=== PATIENT | female | born 1950 | race Caucasian/White ===

== ENCOUNTER 2022-12-11 10:36 | Outpatient (CLI) | payer MEDICARE, SELFPAY ==
[2022-12-11 21:42] LABS: Albumin* 4.6 g/dL (3.3-5.0)
[2022-12-11 21:43] LABS: Chloride* 104 mmol/L (96-114); Potassium* 4.2 mmol/L (3.6-5.1); Sodium* 140 mmol/L (135-149)
[2022-12-11 21:45] LABS: Bilirubin Total* 0.8 mg/dL (0.1-1.5); Carbon Dioxide* 25 mmol/L (20-32); Cholesterol* 130 mg/dL (90-199); Creatinine* 0.8 mg/dL (0.5-1.5); Estimated Glomerular Filt Rate 78 ml/min
[2022-12-11 21:46] LABS: Alanine Aminotransferase* 19 U/L (4-35); Alkaline Phosphatase* 71 U/L (40-150); Aspartate Amino Transferase* 21 U/L (12-35); Blood Urea Nitrogen* 16 mg/dL (7-30); Calcium* 10.1 mg/dL (8.4-10.6); Glucose* 159 mg/dL (60-115); Total Protein* 7.5 g/dL (6.0-8.3); Triglycerides* 206 mg/dL (40-149)
[2022-12-11 21:47] LABS: HDL Cholesterol* 55 mg/dL (>=50); LDL Cholesterol Calculated 34 mg/dL (<100)
[2022-12-11 22:12] LABS: Creatinine Urine 44.7 mg/dL
[2022-12-11 22:16] LABS: Microalbumin Creatinine Ratio 200 mg/g (0-30); Microalbumin Urine 9 mg/dL
[2022-12-11 22:19] LABS: Thyroid Stimulating Hormone* 0.031 uIU/mL (0.270-4.20)
== END 2022-12-11 10:37 | disposition home or self-care (01) ==
PROVIDERS: PCP Nurse Practitioner Family; Visit Provider Nurse Practitioner Family
DX: E11.9 Type 2 diabetes mellitus without complications (principal); E78.5 Hyperlipidemia, unspecified
CPT/HCPCS: 80053; 80061; 82043; 82570; 84443

== ENCOUNTER 2023-01-08 08:43 | Outpatient (CLI) | payer MEDICARE, SELFPAY ==
[2023-01-08 22:06] LABS: Thyroid Stimulating Hormone* 0.085 uIU/mL (0.270-4.20)
[2023-01-10 19:47] LABS: Total T3 103 ng/dL (80-200)
== END 2023-01-08 08:44 | disposition home or self-care (01) ==
PROVIDERS: PCP Nurse Practitioner Family; Visit Provider Nurse Practitioner Family
DX: R79.89 Other specified abnormal findings of blood chemistry (principal)
CPT/HCPCS: 84439; 84443; 84480

== ENCOUNTER 2023-05-27 13:14 | Outpatient (CLI) | payer MEDICARE, SELFPAY | END 2023-05-27 13:15 | disposition home or self-care (01) | PROVIDERS: PCP Nurse Practitioner Family; Visit Provider Nurse Practitioner Family | DX: R79.89 Other specified abnormal findings of blood chemistry (principal) | CPT/HCPCS: 84443 ==

== ENCOUNTER 2023-11-28 12:53 | Outpatient (CLI) | payer MEDICARE, SELFPAY ==
--- OUTSIDE RECORDS SUMMARY | 2023-11-28 12:58 | XMS_ITS | Encounter Summary ---
Author Name Unknown Organization [facility] Address [address] [place] [address]. [place] [address] Care Team Providers Care Multicut Line Operator Name Role Phone Brittany Long DO Primary Care Provider [phone] Mildred Long MD Unavailable [phone] Brittany Long DO Unavailable [phone] Reason for Visit * Reason Comments Medication Refill Encounter Details Date Type Department Care Team (Late st Contact Info) Description 12/24/2022 Refill [facility] [id number] [place] [phone] [place] [address] [place], [place] [phone] Medication Refill Social History Tobacco Use Types Packs/Day Years Used Date Smoking Tobacco: Never Smokeless Tobacco: Never Alcohol Use Standard Drinks/Week Comments Yes 0 (1 standard drink = 0.6 oz pur e alcohol) Rare PHQ-2 Answer Date Recorded PHQ-2 Score 0 05/15/2022 Sex and Gender Information Value Date Recorded Sex Assigned at Female 03/05/2021 10:21 AM CDT Gender Identity Female 03/05/2021 10:21 AM CDT Sexual Orientation Not on file documented as of this encounter Miscellaneous Notes * Telephone Encounter - Tony Herring RN - 12/26/2022 3:24 PM CST Call placed to Patient Relayed Dr Bautista message States that she has already called her pharmacy Relayed to her that her pharmacy is still trying to contact dr Long for refills She will call them again Tony Herring, RN UD LINE TIER * Telephone Encounter - Brittany Long DO - 12/25/2022 12:40 PM CST Pt has transferred care. Please have her notify her pharmacy so refills can be sent to the correct provider. Dr. Brittany Long DO UD LINE TIER documented in this encounter Plan of Treatment Not on file documented as of this encounter Visit Diagnoses Diagnosis Hyperlipidemia LDL goal <100 Other and unspecified hyperlipidemia Hypertension goal BP (blood pressure) < 140/90 Unspecified essential hypertension Type 2 diabetes mellitus with stage 2 chronic kidney disease, without long-term current use of insulin (H) documented in this encounter Care Teams Multicut Line Operator Relationship Specialty [place] [address] [place] [address] PCP - General 02/26/07 Mildred Long MD [address] [place] [address] [address] [place] [address] INTERNAL MEDICINE - ENDOCRINOLOGY, DIABETES & METABOLISM 04/06/15 [place] [address] [address] [place] [address] Assigned PCP 05/12/21 documented as of this encounter
--- OUTSIDE RECORDS SUMMARY | 2023-11-28 12:58 | XMS_ITS | Encounter Summary ---
Author Name Unknown Organization [facility] Address [address] [place] [address]. [place] [address] Care Team Providers Care Chiseler Head Name Role Phone Brittany Long DO Primary Care Provider [phone] Mildred Long MD Unavailable [phone] Tomy Brown DPAlo Unavailable [phone] Brittany Long DO Unavailable [phone] Reason for Visit * Reason Comments Medication Refill Encounter Details Date Type Department Care Team (Late st Contact Info) Description 12/28/2021 Refill [facility] [address] [place] [phone] [place] [address] [place], [place] [phone] Medication Refill Social History Tobacco Use Types Packs/Day Years Used Date Smoking Tobacco: Never Smokeless Tobacco: Never Alcohol Use Standard Drinks/Week Comments Yes 0 (1 standard drink = 0.6 oz pur e alcohol) Rare PHQ-2 Answer Date Recorded PHQ-2 Score 0 05/02/2021 Sex and Gender Information Value Date Recorded Sex Assigned at Female 03/05/2021 10:21 AM CDT Gender Identity Female 03/05/2021 10:21 AM CDT Sexual Orientation Not on file documented as of this encounter Miscellaneous Notes * Telephone Encounter - Day Martinez - 01/01/2022 10:38 AM CSTSummary: Scheduling L/M for pt to schedule appt. CLEANER * Telephone Encounter - Brittany Long DO - 12/29/2021 9:11 PM CST meds refilled. Please call pt. She needs in clinic visit to see me. She never scheduled her visit after her blood work in [place] Brtitany Long DO CLEANER * Telephone Encounter - Kelsey Ching RN - 12/29/2021 7:48 AM BUS CLEANER Requested Prescriptions Pending Prescriptions Disp Refills ??? enalapril (VASOTEC) 20 MG tablet [Pharmacy Med Name: ENALAPRIL MALEATE TABS 20MG] 180 tablet 3 Sig: TAKE 2 TABLETS DAILY NEELIMA Inhibitors (Including Combos) Protocol Passed - 12/28/2021 11:56 PM Passed - Blood pressure under 140/90 in past 12 months BP Readings from Last 3 Encounters: 05/02/21 138/74 09/27/20 (!) 150/77 09/19/20 (!) 157/68 Passed - Recent (12 mo) or future (30 days) visit within the authorizing provider's specialty Patient has had an office visit with the authorizing provider or a provider within the authorizing providers department within the previous 12 mos or has a future within next 30 days. See Patient Info tab in inbasket, or Choose Columns in Meds & Orders section of the refill encounter. Passed - Medication is active on med list Passed - Patient is age 18 or older Passed - No active on record Passed - Normal serum creatinine on file in past 12 months Recent Labs Lab Test 05/02/21 1254 CR 0.86 Ok to refill medication if creatinine is low Passed - Normal serum potassium on file in past 12 months Recent Labs Lab Test 05/02/21 1254 POTASSIUM 4.2 Passed - No positive test within past 12 months ??? pioglitazone (ACTOS) 30 MG tablet [Pharmacy Med Name: PIOGLITAZONE TABS 30MG] 90 tablet 3 Sig: TAKE 1 TABLET DAILY (NEED HGBA1C LAB BEFORE FURTHER REFILLS) Thiazolidinedione Agents (TZDs) Failed - 12/28/2021 11:56 PM Failed - Recent (6 mo) or future (30 days) visit within the authorizing provider's specialty Patient had office visit in the last 6 months or has a visit in the next 30 days with authorizing provider or within the authorizing provider's specialty. See Patient Info tab in inbasket, or Choose Columns in Meds & Orders section of the refill encounter. Passed - Patient has a normal ALT within the past 12 mos. Recent Labs Lab Test 05/02/21 1254 ALT 17 Passed - Patient has a normal AST within the past 12 mos. Recent Labs Lab Test 05/02/21 1254 AST 13 Passed - Patient has documented A1c within the specified period of time. If HgbA1C is 8 or greater, it needs to be on file within the past 3 months. If less than 8, must beon file within the past 6 months. Recent Labs Lab Test 11/27/21 1322 A1C 6.2* Passed - Diagnosis not CHF Passed - Medication is active on med list Passed - Patient is age 18 or older Passed - Patient is not Passed - Patient has a normal serum Creatinine in the past 12 months Recent Labs Lab Test 05/02/21 1254 CR 0.86 Ok to refill medication if creatinine is low Passed - Patient has not had a positive test within the past 12 mos. ??? metFORMIN (GLUCOPHAGE-XR) 500 MG 24 hr tablet [Pharmacy Med Name: METFORMIN HCL ER TABS 500MG] 180 tablet 3 Sig: TAKE 1 TABLET TWICE DAILY WITH MEALS (NEED HGBA1C LAB BEFORE FURTHER REFILLS) Biguanide Agents Failed - 12/28/2021 11:56 PM Failed - Recent (6 mo) or future (30 days) visit within the authorizing provider's specialty Patient had office visit in the last 6 months or has a visit in the next 30 days with authorizing provider or within the authorizing provider's specialty. See Patient Info tab in inbasket, or Choose Columns in Meds & Orders section of the refill encounter. Passed - Patient is age 10 or older Passed - Patient has documented A1c within the specified period of time. If HgbA1C is 8 or greater, it needs to be on file within the past 3 months. If less than 8, must beon file within the past 6 months. Recent Labs Lab Test 11/27/21 1322 A1C 6.2* Passed - Patient's CR is NOT>1.4 OR Patient's EGFR is NOT<45 within past 12 mos. Recent Labs Lab Test 05/02/21 1254 GFRESTIMATED 68 GFRESTBLACK 79 Recent Labs Lab Test 05/02/21 1254 CR 0.86 Passed - Patient does NOT have a diagnosis of CHF. Passed - Medication is active on med list Passed - Patient is not Passed - Patient has not had a positive test within the past 12 mos. ??? glipiZIDE (GLUCOTROL XL) 5 MG 24 hr tablet [Pharmacy Med Name: GLIPIZIDE ER TABS 5MG] 90 tablet3 Sig: TAKE 1 TABLET DAILY (NEED HGBA1C LAB BEFORE FURTHER REFILLS) Sulfonylurea Agents Failed - 12/28/2021 11:56 PM Failed - Recent (6 mo) or future (30 days) visit within the authorizing provider's specialty Patient had office visit in the last 6 months or has a visit in the next 30 days with authorizing provider or within the authorizing provider's specialty. See Patient Info tab in inbasket, or Choose Columns in Meds & Orders section of the refill encounter. Passed - Patient has documented A1c within the specified period of time. If HgbA1C is 8 or greater, it needs to be on file within the past 3 months. If less than 8, must beon file within the past 6 months. Recent Labs Lab Test 11/27/21 1322 A1C 6.2* Passed - Medication is active on med list Passed - Patient is age 18 or older Passed - No active on record Passed - Patient has a recent creatinine (normal) within the past 12 mos. Recent Labs Lab Test 05/02/21 1254 CR 0.86 Ok to refill medication if creatinine is low Passed - Patient has not had a positive test within the past 12 mos. ??? atorvastatin (LIPITOR) 20 MG tablet [Pharmacy Med Name: ATORVASTATIN TABS 20MG] 90 tablet 3 Sig: TAKE 1 TABLET DAILY Statins Protocol Passed - 12/28/2021 11:56 PM Passed - LDL on file in past 12 months Recent Labs Lab Test 05/02/21 1254 LDL 34 Passed - No abnormal creatine kinase in past 12 months No lab results found. Passed - Recent (12 mo) or future (30 days) visit within the authorizing provider's specialty Patient has had an office visit with the authorizing provider or a provider within the authorizing providers department within the previous 12 mos or has a future within next 30 days. See Patient Info tab in inbasket, or Choose Columns in Meds & Orders section of the refill encounter. Passed - Medication is active on med list Passed - Patient is age 18 or older Passed - No active on record Passed - No positive test in past 12 months ??? valsartan (DIOVAN) 160 MG tablet [Pharmacy Med Name: VALSARTAN TABS 160MG] 90 tablet 3 Sig: TAKE 1 TABLET DAILY Angiotensin-II Receptors Passed - 12/28/2021 11:56 PM Passed - Last blood pressure under 140/90 in past 12 months BP Readings from Last 3 Encounters: 05/02/21 138/74 09/27/20 (!) 150/77 09/19/20 (!) 157/68 Passed - Recent (12 mo) or future (30 days) visit within the authorizing provider's specialty Patient has had an office visit with the authorizing provider or a provider within the authorizing providers department within the previous 12 mos or has a future within next 30 days. See Patient Info tab in inbasket, or Choose Columns in Meds & Orders section of the refill encounter. Passed - Medication is active on med list Passed - Patient is age 18 or older Passed - No active on record Passed - Normal serum creatinine on file in past 12 months Recent Labs Lab Test 05/02/21 1254 CR 0.86 Ok to refill medication if creatinine is low Passed - Normal serum potassium on file in past 12 months Recent Labs Lab Test 05/02/21 1254 POTASSIUM 4.2 Passed - No positive test in past 12 months CLEANER documented in this encounter Plan of Treatment Not on file documented as of this encounter Visit Diagnoses Diagnosis Hypertension goal BP (blood pressure) < 140/90 Unspecified essential hypertension Type 2 diabetes mellitus with stage 2 chronic kidney disease, without long-term current use of insulin (H) Hyperlipidemia LDL goal <100 Other and unspecified hyperlipidemia documented in this encounter Care Teams Chiseler Head Relationship Specialty [place] [address] [address] [place] [address] PCP - General 02/26/07 Mildred Long MD [address] [facility] [address] [place], [place] [id number] INTERNAL MEDICINE - ENDOCRINOLOGY, DIABETES & METABOLISM 04/06/15 Tomy Brown DPM [address] [place] [address] Assigned Musculoskeletal Provider 10/02/20 03/30/22 [place] [address] [address] [place] [address] Assigned PCP 05/12/21 documented as of this encounter
--- OUTSIDE RECORDS SUMMARY | 2023-11-28 12:58 | XMS_ITS | Clinical Summary ---
Author Name Unknown Organization [facility] Address [address] [place] [address] Care Team Providers Care Tape Cutting Machine Operator Name Role Phone Brittany Long DO Primary Care Provider [phone] Mildred Long MD Unavailable [phone] Brittany Long DO Unavailable [phone] Allergies Active Allergy Reactions Criticality Noted Date Comments Iodine Rash Low 03/04/2007 OPEN SORES from kelp that the patient ate Medications Medication Sig Dispensed Refills Start Date End Date Status CALCIUM 1500 MG OR TABS ONE DAILY 0 Active ASPIRIN 81 MG OR TABS 1 TABLET DAILY 0 Active VITAMIN D 1000 UNIT OR CAPS 1 CAPSULE DAILY 0 Active Magnesium 250 MG tablet Take 2 tablets by mouth daily. 0 Active Loperamide HCl (IMODIUM OR) Take by mouth as needed. 0 Active blood glucose monitoring (FREESTYLE) lancetsIndications:Typ e 2 diabetes mellitus with stage 2 chronic kidney disease (H) 1 each by In Vitro route daily 1 Box 3 07/26/2016 Active blood glucose monitoring (FREESTYLE LITE) test stripIndications:Type 2 diabetes mellitus with stage 2 chronic kidney disease, without long-term current use of insulin (H) 1 strip by In Vitro route daily 100 each 11 01/24/2017 Active acetaminophen (TYLENOL) 650 MG CR tablet Take 650 mg by mouth every 8 hours as needed for mild pain or fever 0 Active hydrOXYzine (ATARAX) 25 MG tablet Take 25-50 mg by mouth nightly as needed 0 04/06/2020 Active hydrochlorothiazide (HYDRODIURIL) 25 MG tabletIndications:Hype rtension goal BP (blood pressure) < 140/90 TAKE 1 TABLET DAILY 90 tablet 3 05/10/2022 Active atorvastatin (LIPITOR) 20 MG tabletIndications:Hype rlipidemia LDL goal <100 Take 1 tablet (20 mg) by mouth daily 90 tablet 1 05/15/2022 Active enalapril (VASOTEC) 20 MG tabletIndications:Hype rtension goal BP (blood pressure) < 140/90 Take 2 tablets (40 mg) by mouth daily 180 tablet 1 05/15/2022 Active glipiZIDE (GLUCOTROL XL) 5 MG 24 hr tabletIndications:Type 2 diabetes mellitus with stage 2 chronic kidney disease, without long-term current use of insulin (H) Take 1 tablet (5 mg) by mouth daily 90 tablet 1 05/15/2022 Active metFORMIN (GLUCOPHAGE XR) 500 MG 24 hr tabletIndications:Type 2 diabetes mellitus with stage 2 chronic kidney disease, without long-term current use of insulin (H) Take 1 tablet (500 mg) by mouth 2 times daily (with meals) 180 tablet 1 05/15/2022 Active nabumetone (RELAFEN) 750 MG tabletIndications:Prim ranjit osteoarthritis involving multiple joints Take 1 tablet (750 mg) by mouth 2 times daily as needed for moderate pain 30 tablet 05/15/2022 Active pioglitazone (ACTOS) 30 MG tabletIndications:Type 2 diabetes mellitus with stage 2 chronic kidney disease, without long-term current use of insulin (H) Take 1 tablet (30 mg) by mouth daily 90 tablet 1 05/15/2022 Active valsartan (DIOVAN) 160 MG tabletIndications:Hype rtension goal BP (blood pressure) < 140/90 Take 1 tablet (160 mg) by mouth daily 90 tablet 1 05/15/2022 Active furosemide (LASIX) 20 MG tabletIndications:Leg swelling TAKE 1 TABLET DAILY NEEDED FOR SWELLING 30 tablet 11 06/25/2022 Active amLODIPine (NORVASC) 10 MG tabletIndications:Hype rtension goal BP (blood pressure) < 140/90 TAKE 1 TABLET DAILY 90 tablet 0 12/05/2022 Active metoprolol succinate ER (TOPROL XL) 100 MG 24 hr tabletIndications:Hype rtension goal BP (blood pressure) < 140/90 TAKE 1 TABLET DAILY 90 tablet 0 12/05/2022 Active Active Problems Problem Noted Date Diagnosed Date Morbid obesity 08/17/2015 CKD (chronic kidney disease) stage 2, GFR 60-89 ml/min 10/22/2012 24 hour contact 10/17/2012 Overview: EMERGENCY CARE PLAN Presenting Problem Signs and Symptoms Treatment Plan Questions or conerns during clinic hours I will call the clinic directly Questions or conerns outside clinic hours I will call the 24 hour nurse line at [phone] Patient needs to schedule an appointment I will call the 24 hour scheduling team at [phone] or clinic directly Same day treatment I will call the clinic first, nurse line if after hours, urgent care and express care if needed Multinodular goiter 09/26/2010 Edema 03/12/2008 Primary osteoarthritis involving multiple joints 03/04/2007 Type 2 diabetes mellitus wit h stage 2 chronic kidney disease 03/04/2007 Overview: 10/27/08- [facility]. No retinopathy, R 20/20, L 20/20, recommended f/u in 12 months. Diagnosed age 51. Controlled with oral meds. Has only ever been on Actos. 07/25/07-[facility]: 20/20 each eye. Dilated fundus exam revealed no ocular signs of diabetes. Return 1 year. John Li, OD 10/30/10-Dr. Li. No retinopathy. F/u in 12 months. Other specified disorders of thyroid 03/04/2007 Overview: Thyroid nodules. S/p normal biopsy. Followed by ultrasound every 6 months. Hyperlipidemia LDL goal <100 03/04/2007 Overview: [place] 10-year CHD Risk Score: 20% (0 Total Points) Values used to calculate score: Age: 60 years -- Points: 10 Total Cholesterol: 140 mg/dL -- Points: 0 HDL Cholesterol: 38 mg/dL -- Points: 2 Systolic BP (treated): 188 mmHg -- Points: 6 The patient is not a smoker. -- Points: 0 The patient has a diagnosis of diabetes. -- Points: 20% Risk The patient has a family history of CHD. -- Points: x2 Hypertension goal BP (blood pressure) < 140/90 0 03/04/2007 Resolved Problems Problem Noted Date Diagnosed Date Resolved Date Ovarian mass 01/01/2013 12/27/2015 Hypertension goal BP (blood pressure) < 140/90 10/05/2010 10/17/2010 Depression 03/12/2008 10/03/2011 Immunizations Name Administration Dates Next Due COVID-19 Monovalent 18+ (Moderna) 09/18/2021,10/2020,12/29/2020 Influenza (High Dose) 3 kiya nt vaccine 07/22/2019,07/25/2018,07/22/2017,2015,08/04/2015 Influenza (IIV3) PF 07/12/2013, 2,08/18/2011,2009,07/25/2009,09/21/2008,09/12/2007 Influenza Vaccine 65+ (Fluzone HD) 07/22/2021 Influenza Vaccine >6 months,quad, PF 07/19/2014 Pneumo Conj 13-V (2010&after) 06/30/2015 Pneumococcal 23 valent 01/12/2016,09/03/2003 TDAP Vaccine (Adacel) 08/28/2018,09/21/2008 Zoster recombinant adjuvante d (SHINGRIX) 09/29/2019,07/22/2019 Zoster vaccine, live 05/23/2010 Family History Medical History Relation Comments C.A.D. Father age 56 Diabetes Father Hypertension Father Cerebrovascular Disease Maternal Grandmother Lipids Sister Thyroid Disease Sister Grave's Disease Breast Cancer No family hx of Cancer - colorectal No family hx of Relation Status Comments Father Maternal Grandfather Maternal Grandmother Mother Paternal Grandfather Paternal Grandmother Sister Alive Social History Tobacco Use Types Packs/Day Years Used Date Smoking Tobacco: Never Smokeless Tobacco: Never Alcohol Use Standard Drinks/Week Comments Yes 0 (1 standard drink = 0.6 oz pur e alcohol) Rare PHQ-2 Answer Date Recorded PHQ-2 Score 0 05/15/2022 Adolescent Education Answer Date Record ed Getting School Help Needed Not on file 07/19 Sex and Gender Information Value Date Recorded Sex Assigned at Female 03/05/2021 10:21 AM CDT Gender Identity Female 03/05/2021 10:21 AM CDT Sexual Orientation Not on file Last Filed Vital Signs Vital Sign Reading Time Taken Comments Blood Pressure 138/76 05/15/2022 3:11 PM CDT Pulse 69 05/15/2022 3:11 PM CDT Temperature 36.4 ??C (97.6 ??F) 05/15/2022 3:11 PM CD T Respiratory Rate 16 09/19/2020 12:5 9 PM TAR POT WORKER Oxygen Saturation 97% 05/15/2022 3:11 PM CDT Inhaled Oxygen Concentration - - Weight 116.4 kg (256 lb 9.6 oz) 05/15/2022 3:11 PM CDT Height 159.4 cm (5' 2.75) 05/15/2022 3:11 PM CD T Body Mass Index 45.82 05/15/2022 3:11 PM CDT Plan of Treatment Health Maintenance Due Date Last Done Comments ADVANCE CARE PLANNING 1950 ANNUAL REVIEW OF HM ORDERS 1949 CT COLONOGRAPHY 1950 FIT 1950 FLEX SIG 1950 RSV VACCINE ( & 60+) (1 - 1-dose 60+ series) 2009 COLONOSCOPY 12/08/2017 12/08/2007, 04/08/2007 A1C 11/15/2022 05/15/2022, 10/30, 05/02/2021, Additional history exists BMP 05/15/2023 05/15/2022, 07/0 03/2021, 05/09/2020, Additional history exists DIABETIC FOOT EXAM 05/15/2023 05/15/2022, 0 05/02/2021, 09/29/2019, Additional history exists FALL RISK ASSESSMENT 05/15/2023 05/15/2022, 05/02/2021, 04/18/2020, Additional history exists LIPID 05/15/2023 05/15/2022, 07/0 03/2021, 05/09/2020, Additional history exists MEDICARE ANNUAL WELLNESS VISIT 05/15/2023 05/15/2022, 05/02/2021, 10/12/2013, Additional history exists MICROALBUMIN 05/15/2023 05/15/2022, 1112/2019, 09/29/2019, Additional history exists COVID-19 Vaccine ( season) 2023 09/18/2021, 01/26/2021, 12/29/2020 INFLUENZA VACCINE (#1) 2023 , 07/22/2019, 07/25/2018, Additional history exists PHQ-2 (once per calendar year) 2023 05/15/2022, 05/02/2021, 04/18/2020, Additional history exists EYE EXAM 09/16/2024 09/16/2023, 02/25, 09/10/2022, Additional history exists MAMMO SCREENING 12/04/2024 12/04/2022, 04/2023, 09/11/2018, Additional history exists COLORECTAL CANCER SCREENING 05/28/2025 sDNA (Cologuard) 05/28/2025 05/28/2022, 10/2021, 04/05/2019 DTAP/TDAP/TD IMMUNIZATION (3 - Td or Tdap) 08/28/2028 08/28/2018, 09/21/2008 DEXA 05/14/2034 05/14/2019, 02/26, 07/13/2009, Additional history exists URINALYSIS Completed 05/25/2014, 04/28, 05/12/2014, Additional history exists Pneumococcal Vaccine: 65+ Years Completed 01/12/2016, 06/30/2015, 09/03/2003 HEPATITIS C SCREENING Completed 01/24/2017 ZOSTER IMMUNIZATION Completed 09/29/2019, 07/22/2019, 05/23/2010 HPV IMMUNIZATION Aged Out No longer e ligible based on patient's age to complete this topic IPV IMMUNIZATION Aged Out No longer e ligible based on patient's age to complete this topic MENINGITIS IMMUNIZATION Aged Out No l onger eligible based on patient's age to complete this topic RSV MONOCLONAL ANTIBODY Aged Out No l onger eligible based on patient's age to complete this topic Advance Directives For more information, please contact: [phone] Latest Code Status on File Code Status Date Activated Date Inactivated Comments Full Code 01/03/2013 8:11 PM Code Status History Code Status Date Activated Date Inactivated Comments Full Code 01/01/2013 4:30 PM 01/03/2013 8:11 PM Care Teams Tape Cutting Machine Operator Relationship Specialty [place] [address] [address] [address] PCP - General 02/26/07 Mildred Long MD [address] [place] [address] [address] [place], [place] [id number] INTERNAL MEDICINE - ENDOCRINOLOGY, DIABETES & METABOLISM 04/06/15 [place] [address] [address] [place] [address] Assigned PCP 05/12/21
--- OUTSIDE RECORDS SUMMARY | 2023-11-28 12:58 | XMS_ITS | Encounter Summary ---
Author Name Unknown Organization [facility] Address [address] [place] [address]. [place] [address] Care Team Providers Care Appellate Law Clerk Name Role Phone Brittany Long DO Primary Care Provider [phone] Mildred Long MD Unavailable [phone] Brittany Long DO Unavailable [phone] Reason for Visit * Reason Comments Medication Refill Encounter Details Date Type Department Care Team (Late st Contact Info) Description 12/02/2022 Refill [facility] [id number] [place] [phone] [place] [address] [place], [place] [id number] Medication Refill Social History Tobacco Use Types [...] encounter Miscellaneous Notes * Telephone Encounter - Pilo Adan RN - 12/05/2022 8:18 AM CST Prescription approved per [facility] Refill Protocol. Pilo Adan, RN [facility] documented in this encounter Plan of Treatment Not on file documented as of this encounter Visit Diagnoses Diagnosis Hypertension goal BP (blood pressure) < 140/90 Unspecified essential hypertension documented in this encounter Care Teams Appellate Law Clerk Relationship Specialty Start [place] [address] [place] [address] PCP - General 02/26/07 Mildred Long MD [address] [place] [address] [address] [place] [address] INTERNAL MEDICINE - ENDOCRINOLOGY, DIABETES & METABOLISM 04/06/15 [place] [address] [place] [address] Assigned PCP 05/12/21 documented as of this encounter
--- OUTSIDE RECORDS SUMMARY | 2023-11-28 12:58 | XMS_ITS | Referral Summary ---
Author Name Unknown Organization [facility] Address [address] [place] [address] Care Team Providers Care Break Off Worker Name Role Phone Brittany Long DO Primary Care Provider [phone] Mildred Long MD Unavailable [phone] Brittany Long DO Unavailable [phone] Allergies Active Allergy Reactions Criticality Noted [...] call the 24 hour nurse line at [phone] Patient needs to schedule an appointment I will call the 24 hour scheduling team at [phone] or clinic directly Same day treatment I will call the clinic first, nurse line if after hours, urgent care and express care if needed Multinodular goiter 09/26/2010 Edema 03/12/2008 Primary osteoarthritis involving multiple joints 03/04/2007 Type 2 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 No retinopathy, R 20/20, L 20/20, recommended f/u in 12 months. Diagnosed age 51. Controlled with oral meds. Has only ever been on Actos. 07/25/07-[facility]: 20/20 each eye. Dilated fundus exam revealed no ocular signs of diabetes. Return 1 year. John Li, OD 10/30/10-Dr. Li. No retinopathy. F/u in 12 months. Other specified disorders of thyroid 03/04/2007 Overview: Thyroid nodules. S/p normal biopsy. Followed by ultrasound every 6 months. Hyperlipidemia LDL goal <100 03/04/2007 Overview: Omega 10-year CHD Risk Score: 20% (0 Total [...] d (SHINGRIX) 09/29/2019,07/22/2019 Zoster vaccine, live 05/23/2010 Social History Tobacco Use Types Packs/Day Years [...] Respiratory Rate 16 09/19/2020 12:5 9 PM SHIFT FOREMAN Oxygen Saturation 97% 05/15/2022 3:11 PM CDT Inhaled Oxygen Concentration - - Weight 116.4 kg (256 lb 9.6 oz) 05/15/2022 3:11 PM CDT Height 159.4 cm (5' 2.75) 05/15/2022 3:11 PM CD T Body Mass Index 45.82 05/15/2022 3:11 PM CDT Plan of Treatment Not on file Advance Directives For more information, please contact: [phone] Latest Code Status on File Code Status Date Activated Date Inactivated Comments Full Code 01/03/2013 8:11 PM Code Status History Code Status Date Activated Date Inactivated Comments Full Code 01/01/2013 4:30 PM 01/03/2013 8:11 PM Care Teams Break Off Worker Relationship Specialty [place] [address] [place] VELOZ [address] PCP - General 02/26/07 Mildred Long MD [address] [place] [address] [address] [place] [address] INTERNAL MEDICINE - ENDOCRINOLOGY, DIABETES & METABOLISM 04/06/15 [place] [address] [place]ICARD[address] VELOZ [address] Assigned PCP 05/12/21
--- OUTSIDE RECORDS SUMMARY | 2023-11-28 12:59 | XMS_ITS | Encounter Summary ---
Author Name Unknown Organization [facility] Address [address] [place] [address] Care Team Providers Care Lumber Tying Machine Operator Name Role Phone Brittany Long DO Primary Care Provider [phone] Mildred Long MD Unavailable [phone] Brittany Long DO Unavailable [phone] Brittany Long DO Unavailable [phone] Tomy Brown DPM Unavailable [phone] Brittany Long DO Unavailable [phone] Encounter Details Date Type Department Care Team (Late st Contact Info) Description 10/06/2015 MyC Medical Advice [facility] [address] [place] [address] [phone] Monica Euceda CMA Social History Tobacco Use Types Packs/Day Years Used Date Smoking Tobacco: Never Smokeless Tobacco: Never Alcohol Use Standard Drinks/Week Comments Yes 0 (1 standard drink = 0.6 oz pur e alcohol) Rare Sex and Gender Information Value Date Recorded Sex Assigned at Female 03/05/2021 10:21 AM CDT Gender Identity Female 03/05/2021 10:21 AM CDT Sexual Orientation Not on file documented as of this encounter Plan of Treatment Not on file documented as of this encounter Visit Diagnoses Not on filedocumented in this encounter Care Teams Lumber Tying Machine Operator Relationship Specialty [place] [address] [place] [address] PCP - General 02/26/07 [place] [address] [place] [address] PCP - Assigned PCP 07/15/11 12/30/18 Mildred Long MD [address] [place] [address] INTERNAL MEDICINE - ENDOCRINOLOGY, DIABETES & METABOLISM 04/06/15 [place] [address] [place] [address] Assigned PCP 07/31/12 05/11/21 Tomy Brown DPM [address] [place] [address] Assigned Musculoskeletal Provider 10/02/20 03/30/22 [place] [address] [place] [address] Assigned PCP 05/12/21 documented as of this encounter
--- OUTSIDE RECORDS SUMMARY | 2023-11-28 12:59 | XMS_ITS | Encounter Summary ---
Author Name Unknown Organization [facility] Address [address] [place] [address] Care Team Providers Care Quality Review Specialist Name Role Phone Brittany Long DO Primary Care Provider [phone] Mildred Long MD Unavailable [phone] Brittany Long DO Unavailable [phone] Brittany Long DO Unavailable [phone] Tomy Brown DPM Unavailable [phone] Brittany Long DO Unavailable [phone] Encounter Details Date Type Department Care Team (Late st Contact Info) Description 12/06/2012 MyC Medical Advice [facility] [address] [place] [phone] [place] [address] [place] [address] Social History Tobacco Use Types Packs/Day Years [...] on filedocumented in this encounter Care Teams Quality Review Specialist Relationship Specialty [place] [address] [place] [place]ELOZ [address] PCP - General 02/26/07 [place] [address] RICARD[place] VELOZ [address] PCP - Assigned PCP 07/15/11 12/30/18 Mildred Long MD [address] [place] [address] [address] [place] [address] INTERNAL MEDICINE - ENDOCRINOLOGY, DIABETES & METABOLISM 04/06/15 [place] [address] RIC[address] VELOZ [address] Assigned PCP 07/31/12 05/11/21 Tomy Brown DPM [address] [place] [address] Assigned Musculoskeletal Provider 10/02/20 03/30/22 [place] [address] [place]ICARD[place] VELOZ [address] Assigned PCP 05/12/21 documented as of this encounter
--- OUTSIDE RECORDS SUMMARY | 2023-11-28 12:59 | XMS_ITS | Encounter Summary ---
Author Name Unknown Organization [facility] Address [address] [place] [address] Care Team Providers Care Lay Out Drafter Name Role Phone Brittany Long DO Primary Care Provider Mildred Long MD Unavailable [phone] Brittany Long DO Unavailable [phone] Brittany Long DO Unavailable [phone] Tomy Brown DPM Unavailable [phone] Brittany Long DO Unavailable [phone] Encounter Details Date Type Department Care Team (Late st Contact Info) Description 05/15/2016 MyC Medical Advice [facility] [address] [place] [address] [phone] Monica Euceda CMA Social History Tobacco Use [...] on filedocumented in this encounter Care Teams Lay Out Drafter Relationship Specialty [place] [address] [place] [address] PCP - General 02/26/07 [place] [address] [place] [address] PCP - Assigned PCP 07/15/11 12/30/18 Mildred Long MD [address] [place] [address] INTERNAL MEDICINE - ENDOCRINOLOGY, DIABETES & METABOLISM 04/06/15 [place] [address] [place] [address] Assigned PCP 07/31/12 05/11/21 Tomy Brown DPM [address] [place] [address] Assigned Musculoskeletal Provider 10/02/20 03/30/22 [place] [address] [place] [address] Assigned PCP 05/12/21 documented as of this encounter
--- OUTSIDE RECORDS SUMMARY | 2023-11-28 12:59 | XMS_ITS | Encounter Summary ---
Author Name Unknown Organization [facility] Address [address] [place] [address] Care Team Providers Care Senior Marketing Associate Name Role Phone Brittany Long DO Primary Care Provider [phone] Mildred Long MD Unavailable [phone] Brittany Long DO Unavailable [phone] Tomy Brown DPM Unavailable [phone] Brittany Long DO Unavailable [phone] Reason for Visit * Reason Comments Medication Refill Encounter Details Date Type Department Care Team (Late st Contact Info) Description 01/23/2021 Refill [facility] [address] [place] [phone] [place] [address] [address] [place], [place] [phone] Medication Refill Social History Tobacco Use Types Packs/Day Years Used Date Smoking Tobacco: Never Smokeless Tobacco: Never Alcohol Use Standard Drinks/Week Comments Yes 0 (1 standard drink = 0.6 oz pur e alcohol) Rare PHQ-2 Answer Date Recorded PHQ-2 Score 0 11/04/2018 Sex and Gender Information Value Date Recorded Sex Assigned at Female 03/05/2021 10:21 AM CDT Gender Identity Female 03/05/2021 10:21 AM CDT Sexual Orientation Not on file documented as of this encounter Miscellaneous Notes * Telephone Encounter - Maya Marshall - 01/25/2021 8:28 AM CDT Patient will call and schedule an appointment when you she gets back from vacation in about a month * Telephone Encounter - Brittany Long DO - 01/24/2021 10:55 AM CDT meds refilled. Pt is due for a visit. Can be virtual with me but needs BP check as well. Brittany Long DO * Telephone Encounter - Mable Chavarria RN - 01/23/2021 12:10 PM CDT Spoke with pt. Her last OV was 09/19/2020 with BLAKE Ann at [facility] and her PCP listed is DO Ethan. She plans [facility] Dr. Long, please advise refills and next recheck. Her last Virtual visit with you was 04/18/2020. Requested Prescriptions Pending Prescriptions Disp Refills ??? valsartan (DIOVAN) 160 MG tablet [Pharmacy Med Name: VALSARTAN TABS 160MG] 90 tablet 3 Sig: TAKE 1 TABLET DAILY Angiotensin-II Receptors Failed - 01/23/2021 12:08 AM Failed - Last blood pressure under 140/90 in past 12 months BP Readings from Last 3 Encounters: 09/27/20 (!) 150/77 09/19/20 (!) 157/68 09/29/19 130/70 Passed - Recent (12 mo) or future [...] past 12 months Recent Labs Lab Test 05/09/20 1125 CR 0.86 Ok to refill medication if creatinine is low Passed - Normal serum potassium on file in past 12 months Recent Labs Lab Test 05/09/20 1125 POTASSIUM 4.0 Passed - No positive test in past 12 months ??? atorvastatin (LIPITOR) 20 MG tablet [Pharmacy Med Name: ATORVASTATIN TABS 20MG] 90 tablet 3 Sig: TAKE 1 TABLET DAILY Statins Protocol Passed - 01/23/2021 12:08 AM Passed - LDL on file in past 12 months Recent Labs Lab Test 05/09/20 1125 LDL 47 Passed - No abnormal creatine kinase in [...] positive test in past 12 months ??? glipiZIDE (GLUCOTROL XL) 5 MG 24 hr tablet [Pharmacy Med Name: GLIPIZIDE ER TABS 5MG] 90 tablet3 Sig: TAKE 1 TABLET DAILY (NEED HGBA1C LAB BEFORE FURTHER REFILLS) Sulfonylurea Agents Passed - 01/23/2021 12:08 AM Passed - Patient has documented A1c within the specified period of time. If HgbA1C is 8 or greater, it needs to be on file within the past 3 months. If less than 8, must beon file within the past 6 months. Recent Labs Lab Test 12/08/20 1129 A1C 6.2* Passed - Medication is active on med list Passed - Patient is age 18 or older Passed - No active on record Passed - Patient has a recent creatinine (normal) within the past 12 mos. Recent Labs Lab Test 05/09/20 1125 CR 0.86 Ok to refill medication if creatinine is low Passed - Patient has not had a positive test within the past 12 mos. Passed - Recent (6 mo) or future (30 days) visit within the authorizing provider's specialty Patient had office visit in the last 6 months or has a visit in the next 30 days with authorizing provider or within the authorizing provider's specialty. See Patient Info tab in inbasket, or Choose Columns in Meds & Orders section of the refill encounter. ??? metFORMIN (GLUCOPHAGE-XR) 500 MG 24 hr tablet [Pharmacy Med Name: METFORMIN HCL ER TABS 500MG] 180 tablet 3 Sig: TAKE 1 TABLET TWICE DAILY WITH MEALS (NEED HGBA1C LAB BEFORE FURTHER REFILLS) Biguanide Agents Passed - 01/23/2021 12:08 AM Passed - Patient is age 10 or older Passed - Patient has documented A1c within the specified period of time. If HgbA1C is 8 or greater, it needs to be on file within the past 3 months. If less than 8, must beon file within the past 6 months. Recent Labs Lab Test 12/08/20 1129 A1C 6.2* Passed - Patient's CR is NOT>1.4 OR Patient's EGFR is NOT<45 within past 12 mos. Recent Labs Lab Test 05/09/20 1125 GFRESTIMATED 68 GFRESTBLACK 79 Recent Labs Lab Test 05/09/20 1125 CR 0.86 Passed - Patient does NOT have a diagnosis of CHF. Passed - Medication is active on med list Passed - Patient is not Passed - Patient has not had a positive test within the past 12 mos. Passed - Recent (6 mo) or future (30 days) visit within the authorizing provider's specialty Patient had office visit in the last 6 months or has a visit in the next 30 days with authorizing provider or within the authorizing provider's specialty. See Patient Info tab in inbasket, or Choose Columns in Meds & Orders section of the refill encounter. ??? enalapril (VASOTEC) 20 MG tablet [Pharmacy Med Name: ENALAPRIL MALEATE TABS 20MG] 180 tablet 3 Sig: TAKE 2 TABLETS DAILY NEELIMA Inhibitors (Including Combos) Protocol Failed - 01/23/2021 12:08 AM Failed - Blood pressure under 140/90 in past 12 months BP Readings from Last 3 Encounters: 09/27/20 (!) 150/77 09/19/20 (!) 157/68 09/29/19 130/70 Passed - Recent (12 mo) or future [...] past 12 months Recent Labs Lab Test 05/09/20 1125 CR 0.86 Ok to refill medication if creatinine is low Passed - Normal serum potassium on file in past 12 months Recent Labs Lab Test 05/09/20 1125 POTASSIUM 4.0 Passed - No positive test within past 12 months ??? pioglitazone (ACTOS) 30 MG tablet [Pharmacy Med Name: PIOGLITAZONE TABS 30MG] 90 tablet 3 Sig: TAKE 1 TABLET DAILY (NEED HGBA1C LAB BEFORE FURTHER REFILLS) Thiazolidinedione Agents (TZDs) Failed - 01/23/2021 12:08 AM Failed - Patient has a normal ALT within the past 12 mos. Recent Labs Lab Test 09/29/19 1039 ALT 22 Failed - Patient has a normal AST within the past 12 mos. Recent Labs Lab Test 09/29/19 1039 AST 12 Passed - Patient has documented A1c within the specified period of time. If HgbA1C is 8 or greater, it needs to be on file within the past 3 months. If less than 8, must beon file within the past 6 months. Recent Labs Lab Test 12/08/20 1129 A1C 6.2* Passed - Diagnosis not CHF Passed - Medication is active on med list Passed - Patient is age 18 or older Passed - Patient is not Passed - Patient has a normal serum Creatinine in the past 12 months Recent Labs Lab Test 05/09/20 1125 CR 0.86 Ok to refill medication if creatinine is low Passed - Patient has not had a positive test within the past 12 mos. Passed - Recent (6 mo) or future (30 days) visit within the authorizing provider's specialty Patient had office visit in the last 6 months or has a visit in the next 30 days with authorizing provider or within the authorizing provider's specialty. See Patient Info tab in inbasket, or Choose Columns in Meds & Orders section of the refill encounter. Mable Rucker RN, BSN documented in this encounter Plan of Treatment Not on file documented as of this encounter Visit Diagnoses Diagnosis Hypertension goal BP (blood pressure) < 140/90 Unspecified essential hypertension Hyperlipidemia LDL goal <100 Other and unspecified hyperlipidemia Type 2 diabetes mellitus with stage 2 chronic kidney disease, without long-term current use of insulin (H) documented in this encounter Care Teams Senior Marketing Associate Relationship Specialty [place] [address] [place] [address] PCP - General 02/26/07 Mildred Long MD [address] [facility] [address] [place] [address] INTERNAL MEDICINE - ENDOCRINOLOGY, DIABETES & METABOLISM 04/06/15 [place] [address] [place] [address] Assigned PCP 07/31/12 05/11/21 Tomy Brown DPM [address] [place] [address] Assigned Musculoskeletal Provider 10/02/20 03/30/22 [place] [address] [place] [address] Assigned PCP 05/12/21 documented as of this encounter
--- OUTSIDE RECORDS SUMMARY | 2023-11-28 12:59 | XMS_ITS | Encounter Summary ---
Author Name Unknown Organization [facility] Address [address] [place] [address] Care Team Providers Care Physician Anesthesiologist Name Role Phone Brittany Long DO Primary Care Provider Mildred Long MD Unavailable [phone] Brittany Long DO Unavailable [phone] Brittany Long DO Unavailable [phone] Tomy Brown DPM Unavailable [phone] Brittany Long DO Unavailable [phone] Encounter Details Date Type Department Care Team (Late st Contact Info) Description 07/10/[address] [facility] [address] [place] [address] [phone] Monica Euceda CMA Social History Tobacco Use [...] on filedocumented in this encounter Care Teams Physician Anesthesiologist Relationship Specialty [place] [address] [place] [address] PCP - General 02/26/07 [place] [address] [place] [address] PCP - Assigned PCP 07/15/11 12/30/18 Mildred Long MD [address] [place] [address] INTERNAL MEDICINE - ENDOCRINOLOGY, DIABETES & METABOLISM 04/06/15 [place] [address] [place] [address] Assigned PCP 07/31/12 05/11/21 Tomy Brown DPM [address] [place] [address] Assigned Musculoskeletal Provider 10/02/20 03/30/22 [place] [address] [place] [address] Assigned PCP 05/12/21 documented as of this encounter
--- OUTSIDE RECORDS SUMMARY | 2023-11-28 12:59 | XMS_ITS | Encounter Summary ---
Author Name Unknown Organization [facility] Address [address] [place] [address] Care Team Providers Care Respiratory Therapy Instructor Name Role Phone Brittany Long DO Primary Care Provider [phone] Mildred Long MD Unavailable [phone] Brittany Long DO Unavailable [phone] Brittany Long DO Unavailable [phone] Tomy Brown DPM Unavailable [phone] Brittany Long DO Unavailable [phone] Encounter Details Date Type Department Care Team (Late st Contact Info) Description 08/24/2009 MyC Medical Advice [facility] [place] [address] [place] [address] Social History Tobacco Use Types Packs/Day Years Used Date Smoking Tobacco: Never Alcohol Use Standard Drinks/Week Comments Yes 0 (1 standard drink = 0.6 oz pur e alcohol) rare Sex and Gender Information Value Date Recorded Sex Assigned at Female 03/05/2021 10:21 AM CDT Gender Identity Female 03/05/2021 10:21 AM CDT Sexual Orientation Not on file documented as of this encounter Plan of Treatment Not on file documented as of this encounter Visit Diagnoses Not on filedocumented in this encounter Care Teams Respiratory Therapy Instructor Relationship Specialty [place] [address] [address] [place]ELOZ [address] PCP - General 02/26/07 [place] [address] [place] VELOZ [address] PCP - Assigned PCP 07/15/11 12/30/18 Mildred Long MD [address] [place] [address] [address] [place] [address] INTERNAL MEDICINE - ENDOCRINOLOGY, DIABETES & METABOLISM 04/06/15 [place] [address] RICARD[place] VELOZ [address] Assigned PCP 07/31/12 05/11/21 Tomy Brown DPM [address] [place] [address] Assigned Musculoskeletal Provider 10/02/20 03/30/22 [place] [address] [place]IC[address] VELOZ [address] Assigned PCP 05/12/21 documented as of this encounter
--- OUTSIDE RECORDS SUMMARY | 2023-11-28 12:59 | XMS_ITS | Encounter Summary ---
Author Name Unknown Organization [facility] Address [address] [place] [address]. [place] [address] Care Team Providers Care Pipe Fitter Welding Name Role Phone Brittany Long DO Primary Care Provider [phone] Mildred Long MD Unavailable [phone] Brittany Long DO Unavailable [phone] Tomy Brown DPM Unavailable [phone] Brittany Long DO Unavailable [phone] Reason for Visit * Reason Comments Medication Refill Encounter Details Date Type Department Care Team (Late st Contact Info) Description 01/20/2021 [facility] [address] [place] [address] [phone] [place] [address] [place] [address] [id number] Medication Refill Social History Tobacco Use Types [...] encounter Miscellaneous Notes * Telephone Encounter - Jolynn Boyce - 01/23/2021 3:36 PM CDTSummary: scheduling Called and spoke to patient that she is due for a DM and BP check. Patient stated she is going out of town and will call when she gets back. * Telephone Encounter - Brittany Long DO - 01/20/2021 12:41 PM CDT Med filled. Pt overdue for in office DM visit and BP check. Please help to schedule Brittany Long DO * Telephone Encounter - Ann-Marie Sales RN - 01/20/2021 11:21 AM CDT Routing refill request to provider for review/approval because: BP failed parameters. Ann-Marie Sales RN documented in this encounter Plan of Treatment Not on file documented as of this encounter Visit Diagnoses Diagnosis Hypertension goal BP (blood pressure) < 140/90 Unspecified essential hypertension documented in this encounter Care Teams Pipe Fitter Welding Relationship Specialty [place] [address] [place] [address] PCP - General 02/26/07 Mildred Long MD [address] [place] [address] INTERNAL MEDICINE - ENDOCRINOLOGY, DIABETES & METABOLISM 04/06/15 [place] [address] [place] [address] Assigned PCP 07/31/12 05/11/21 Tomy Brown DPM [address] [facility] [place] RICARDO ABRAMS [address] Assigned Musculoskeletal Provider 10/02/20 03/30/22 [place] [address] [place]IC[address] VELOZ [address] Assigned PCP 05/12/21 documented as of this encounter
--- OUTSIDE RECORDS SUMMARY | 2023-11-28 12:59 | XMS_ITS | Encounter Summary ---
Author Name Unknown Organization [facility] Address [address] [place] [address] Care Team Providers Care Easement Worker Name Role Phone Brittany Long DO Primary Care Provider [phone] Mildred Long MD Unavailable [phone] Brittany Long DO Unavailable [phone] Brittany Long DO Unavailable [phone] Tomy Brown DPM Unavailable [phone] Brittany Long DO Unavailable [phone] Encounter Details Date Type Department Care Team (Late st Contact Info) Description 01/23/2016 MyC Medical Advice [facility] [address] [place] [address] [phone] Monica Euceda CMA Social History Tobacco Use [...] on filedocumented in this encounter Care Teams Easement Worker Relationship Specialty [place] [address] [place] [address] PCP - General 02/26/07 [place] [address] [place] [address] PCP - Assigned PCP 07/15/11 12/30/18 Mildred Long MD [address] [place] [address] INTERNAL MEDICINE - ENDOCRINOLOGY, DIABETES & METABOLISM 04/06/15 [place] [address] [place] [address] Assigned PCP 07/31/12 05/11/21 Tomy Brown DPM [address] [place] [address] Assigned Musculoskeletal Provider 10/02/20 03/30/22 [place] [address] [place] [address] Assigned PCP 05/12/21 documented as of this encounter
--- OUTSIDE RECORDS SUMMARY | 2023-11-28 12:59 | XMS_ITS | Encounter Summary ---
Author Name Unknown Organization [facility] Address [address] [place] [address] Care Team Providers Care Agribusiness Professor Name Role Phone Brittany Long DO Primary Care Provider [phone] Mildred Long MD Unavailable [phone] Brittany Long DO Unavailable [phone] Tomy Brown DPM Unavailable [phone] Brittany Long DO Unavailable [phone] Encounter Details Date Type Department Care Team (Late st Contact Info) Description 01/27/2021 Documentation Only INTERFACED REPORT Unknown, Provider Social History Tobacco Use Types Packs/Day Years [...] on filedocumented in this encounter Care Teams Agribusiness Professor Relationship Specialty [place] [address] [address] [place]ELOZ [id number] PCP - General 02/26/07 Mildred Long MD [address] [place] [address] [address] [place] [address] INTERNAL MEDICINE - ENDOCRINOLOGY, DIABETES & METABOLISM 04/06/15 [place] [address] [place]IC[address] VELOZ [address] Assigned PCP 07/31/12 05/11/21 Tomy Brown DPM [address] [facility] [address] Assigned Musculoskeletal Provider 10/02/20 03/30/22 [place] [address] [address]IC[address] VELOZ [address] Assigned PCP 05/12/21 documented as of this encounter
--- OUTSIDE RECORDS SUMMARY | 2023-11-28 12:59 | XMS_ITS | Encounter Summary ---
Author Name Unknown Organization [facility] Address [address] [place] [address] Care Team Providers Care Ship Scaler Name Role Phone Brittany Long DO Primary Care Provider [phone] Mildred Long MD Unavailable [phone] Brittany Long DO Unavailable [phone] Brittany Long DO Unavailable [phone] Tomy Brown DPM Unavailable [phone] Brittany Long DO Unavailable [phone] Encounter Details Date Type Department Care Team (Late st Contact Info) Description 08/14/2016 [facility] [address] [place] [address] [phone] [place] [address] [place] [address] Social History Tobacco Use Types Packs/Day Years [...] on filedocumented in this encounter Care Teams Ship Scaler Relationship Specialty [place] [address] RCIARDO VELOZ [address] PCP - General 02/26/07 [place] [address] RICARDO VELOZ 62417 PCP - Assigned PCP 07/15/11 12/30/18 Mildred Long MD [address] [place] [address] [address] [place] [address] INTERNAL MEDICINE - ENDOCRINOLOGY, DIABETES & METABOLISM 04/06/15 [place] [address] RICARDO VELOZ 95444 Assigned PCP 07/31/12 05/11/21 Tomy Brown DPM [address] [place] [address] Assigned Musculoskeletal Provider 10/02/20 03/30/22 [place] [address] RICARDO VELOZ 67014 Assigned PCP 05/12/21 documented as of this encounter
--- OUTSIDE RECORDS SUMMARY | 2023-11-28 12:59 | XMS_ITS | Encounter Summary ---
Author Name Unknown Organization [facility] Address [address] [place] [address] Care Team Providers Care Fan Runner Name Role Phone Brittany Long DO Primary Care Provider [phone] Mildred Long MD Unavailable [phone] Brittany Long DO Unavailable [phone] Brittany Long DO Unavailable [phone] Tomy Brown DPM Unavailable [phone] Brittany Long DO Unavailable [phone] Reason for Visit * Reason Onset Date Comments Refill Request 02/17/2010 HCTZ Encounter Details Date Type Department Care Team (Late st Contact Info) Description 02/17/2010 Refill [facility] [place] [address] [place], [place] [id number] Refill Request (HCTZ) Social History Tobacco Use Types Packs/Day Years [...] encounter Miscellaneous Notes * Telephone Encounter - Óscar Light - 02/17/2010 3:05 PM CDT Mail order pharmacy~please sign and fax original rx~ given to station elementary secretary documented in this encounter Plan of Treatment Not on file documented as of this encounter Visit Diagnoses Diagnosis Type II or unspecified type diabetes mellitus without mention of complication, not stated as uncontrolled Unspecified essential hypertension documented in this encounter Care Teams Fan Runner Relationship Specialty [place] [address] RICARDO VELOZ 85867 PCP - General 02/26/07 [place] [address] RICARDO VELOZ 25162 PCP - Assigned PCP 07/15/11 12/30/18 Mildred Long MD [address] [place] [address] [address] [place] [address] INTERNAL MEDICINE - ENDOCRINOLOGY, DIABETES & METABOLISM 04/06/15 [place] [address] RICARDO VELOZ 75419 Assigned PCP 07/31/12 05/11/21 Tomy Brown DPM [address] [place] [address] Assigned Musculoskeletal Provider 10/02/20 03/30/22 [place] [address] RICARDO VELOZ 94114 Assigned PCP 05/12/21 documented as of this encounter
--- OUTSIDE RECORDS SUMMARY | 2023-11-28 12:59 | XMS_ITS | Encounter Summary ---
Author Name Unknown Organization [facility] Address [address] [place] [address]. [place] [address] Care Team Providers Care Certified Medical Assistant Name Role Phone Brittany Long DO Primary Care Provider Mildred Long MD Unavailable [phone] Brittany Long DO Unavailable [phone] Brittany Long DO Unavailable [phone] Tomy Brown DPM Unavailable [phone] Brittany Long DO Unavailable [phone] Encounter Details Date Type Department Care Team (Late st Contact Info) Description 08/05/2018 [facility] [address] [phone] Mable Chavarria RN [place] [address] [place] [address] Social History Tobacco Use Types Packs/Day Years [...] on filedocumented in this encounter Care Teams Certified Medical Assistant Relationship Specialty [place] [address] RICARDO VELOZ 23682 PCP - General 02/26/07 [place] [address] RICARDO VELOZ 22004 PCP - Assigned PCP 07/15/11 12/30/18 Mildred Long MD [address] [place] [address] INTERNAL MEDICINE - ENDOCRINOLOGY, DIABETES & METABOLISM 04/06/15 [place] [address] RICARDO VELOZ 11909 Assigned PCP 07/31/12 05/11/21 Tomy Brown DPM [address] [place] [address] Assigned Musculoskeletal Provider 10/02/20 03/30/22 [place] [address] RICARDO VELOZ 02805 Assigned PCP 05/12/21 documented as of this encounter
--- OUTSIDE RECORDS SUMMARY | 2023-11-28 12:59 | XMS_ITS | Encounter Summary ---
Author Name Unknown Organization [facility] Address [address] [place] [address] Care Team Providers Care Lining Feller Name Role Phone Brittany Long DO Primary Care Provider [phone] Mildred Long MD Unavailable [phone] Brittany Long DO Unavailable [phone] Tomy Brown DPAlo Unavailable [phone] Brittany Long DO Unavailable [phone] Encounter Details Date Type Department Care Team (Latest Contact Info) Description 10/02/2019 MyC Medical Advice [facility] [address] [place] [phone] [place] [address] [address] [place], [place] [phone] Hypertension goal BP (blood pressure) < 140/90 (Primary Dx) Social History Tobacco Use Types Packs/Day Years [...] encounter Miscellaneous Notes * Telephone Encounter - Mónica, Ann-Marie, KATHERINE - 10/06/2019 7:47 AM CST Order Valsartan sent to [facility] pharmacy. Ann-Marie Sales RN MILL TENDER documented in this encounter Plan of Treatment Not on file documented as of this encounter Visit Diagnoses Diagnosis Hypertension goal BP (blood pressure) < 140/90- Primary Unspecified essential hypertension documented in this encounter Care Teams Lining Feller Relationship Specialty [place] [address] [place] [address] PCP - General 02/26/07 Mildred Long MD [address] [facility] [address] [place] [address] INTERNAL MEDICINE - ENDOCRINOLOGY, DIABETES & METABOLISM 04/06/15 [place] [address] [place] [address] Assigned PCP 07/31/12 05/11/21 Tomy Brown DPM [address] [place] [address] Assigned Musculoskeletal Provider 10/02/20 03/30/22 [place] [address] RICARDO VELOZ 77213 Assigned PCP 05/12/21 documented as of this encounter
--- OUTSIDE RECORDS SUMMARY | 2023-11-28 12:59 | XMS_ITS | Encounter Summary ---
Author Name Unknown Organization [facility] Address [address] [place] [address] Care Team Providers Care Video Library Assistant Name Role Phone Brittany Long DO Primary Care Provider [phone] Mildred Long MD Unavailable [phone] Brittany Long DO Unavailable [phone] Brittany Long DO Unavailable [phone] Tomy Brown DPAlo Unavailable [phone] Brittany Long DO Unavailable [phone] Reason for Visit * Reason Onset Date Comments Refill Request 11/03/2018 metoprolol XL Encounter Details Date Type Department Care Team (Late st Contact Info) Description 11/03/2018 MyC Refill [facility] [address] [place] [address] [phone] [place] [address] [place] [address] Refill Request (metoprolol XL ) Social History Tobacco Use Types Packs/Day Years [...] encounter Miscellaneous Notes * Telephone Encounter - Moriah Simmons RN - 11/04/2018 11:33 AM GOVERNMENT EMPLOYEE Prescription approved per [facility] Refill Protocol. Alanis Simmons RN RNMENT EMPLOYEE documented in this encounter Plan of Treatment Not on file documented as of this encounter Visit Diagnoses Diagnosis Hypertension goal BP (blood pressure) < 140/90 Unspecified essential hypertension documented in this encounter Care Teams Video Library Assistant Relationship Specialty [place] [address] RICARD[address] VELOZ 71744 PCP - General 02/26/07 [place] [address] RICARDO VELOZ 06001 PCP - Assigned PCP 07/15/11 12/30/18 Mildred Long MD [address] [place] [address] INTERNAL MEDICINE - ENDOCRINOLOGY, DIABETES & METABOLISM 04/06/15 [place] [address] RICARDO VELOZ 43805 Assigned PCP 07/31/12 05/11/21 Tomy Brown DPM [address] [place] [address] Assigned Musculoskeletal Provider 10/02/20 03/30/22 [place] [address] RICARDO VELOZ 29703 Assigned PCP 05/12/21 documented as of this encounter
--- OUTSIDE RECORDS SUMMARY | 2023-11-28 12:59 | XMS_ITS | Encounter Summary ---
Author Name Unknown Organization [facility] Address [address] [place] [address] Care Team Providers Care Leader Writer Name Role Phone Brittany Long DO Primary Care Provider Mildred Long MD Unavailable [phone] Brittany Long DO Unavailable [phone] Brittany Long DO Unavailable [phone] Tomy Brown DPM Unavailable [phone] Brittany Long DO Unavailable [phone] Encounter Details Date Type Department Care Team (Late st Contact Info) Description 12/26/2015 MyC Medical Advice [facility] [address] [place] [address] [phone] Monica Euceda CMA Social History Tobacco Use [...] on filedocumented in this encounter Care Teams Leader Writer Relationship Specialty [place] [address] [place] [address] PCP - General 02/26/07 [place] [address] [place] [address] PCP - Assigned PCP 07/15/11 12/30/18 Mildred Long MD [address] [place] [address] INTERNAL MEDICINE - ENDOCRINOLOGY, DIABETES & METABOLISM 04/06/15 [place] [address] [place] [address] Assigned PCP 07/31/12 05/11/21 Tomy Brown DPM [address] [place] [address] Assigned Musculoskeletal Provider 10/02/20 03/30/22 [place] [address] [place] [address] Assigned PCP 05/12/21 documented as of this encounter
--- OUTSIDE RECORDS SUMMARY | 2023-11-28 12:59 | XMS_ITS | Encounter Summary ---
Author Name Unknown Organization [facility] Address [address] [place] [address]. [place] [address] Care Team Providers Care Instructor Adjunct Surgical Technician Name Role Phone Brittany Long DO Primary Care Provider [phone] Mildred Long MD Unavailable [phone] Brittany Logn DO Unavailable [phone] Tomy Brown DPM Unavailable [phone] Brittany Long DO Unavailable [phone] Reason for Visit * Reason Comments Medication Refill Encounter Details Date Type Department Care Team (Late st Contact Info) Description [facility] [address] [place] [address] [phone] [place] [address] [place] [address] [phone] Medication Refill Social History Tobacco Use Types [...] * Telephone Encounter - Jolynn Boyce - 03/29/2021 11:08 AM 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 We are long overdue for a DM visit. Should schedule in person visit and plan fasting labs at the same time Brittany Long DO * Telephone Encounter - Kelsey Ching RN - 03/28/2021 10:02 AM CDT Requested Prescriptions Pending Prescriptions Disp Refills ??? metoprolol succinate ER (TOPROL-XL) 100 MG 24 hr tablet [Pharmacy Med Name: METOPROLOL SUCCINATE ER TABS 100MG] 90 tablet 3 Sig: TAKE 1 TABLET DAILY Beta-Blockers Protocol Failed - 03/28/2021 12:01 AM Failed - Blood pressure under 140/90 in past 12 months BP Readings from Last 3 Encounters: 09/27/20 (!) 150/77 09/19/20 (!) 157/68 09/29/19 130/70 Passed - Patient is age 6 or older Passed - Recent (12 mo) or future [...] - Medication is active on med list documented in this encounter Plan of Treatment Not on file documented as of this encounter Visit Diagnoses Diagnosis Hypertension goal BP (blood pressure) < 140/90 Unspecified essential hypertension documented in this encounter Care Teams Instructor Adjunct Surgical Technician Relationship Specialty [place] [address] [place] [address] PCP - General 02/26/07 Mildred Long MD [address] [place] [address] 101 [place] [address] INTERNAL MEDICINE - ENDOCRINOLOGY, DIABETES & METABOLISM 04/06/15 [place] [address] [place] [address] Assigned PCP 07/31/12 05/11/21 Tomy Brown DPM [address] [place] [address] Assigned Musculoskeletal Provider 10/02/20 03/30/22 [place] [address] [place] [address] Assigned PCP 05/12/21 documented as of this encounter
--- OUTSIDE RECORDS SUMMARY | 2023-11-28 12:59 | XMS_ITS | Encounter Summary ---
Author Name Unknown Organization [facility] Address [address] [place] [address]. [place] [address] Care Team Providers Care Steel Tester Name Role Phone Brittany Long DO Primary Care Provider [phone] Mildred Long MD Unavailable [phone] Brittany Long DO Unavailable [phone] Brittany Long DO Unavailable [phone] Tomy Brown DPAlo Unavailable [phone] Brittany Long DO Unavailable [phone] Reason for Visit * Reason Onset Date Comments Orders 05/12/2014 Encounter Details Date Type Department Care Team (Late st Contact Info) Description 05/12/2014 MyC Medical Advice [facility] [address] [place] [phone] [place] [address] [place] [address] Orders Social History Tobacco Use Types Packs/Day Years [...] encounter Miscellaneous Notes * Telephone Encounter - Deirdre, Renee - 05/13/2014 9:37 AM CDT Patient is requesting lab orders .ple advise * Telephone Encounter - Kiana Mejía RN - 05/13/2014 7:47 AM CDT Please see other My Chart message. FYI only documented in this encounter Plan of Treatment Not on file documented as of this encounter Visit Diagnoses Not on filedocumented in this encounter Care Teams Steel Tester Relationship Specialty [place] [address] RICARDO VELOZ [address] PCP - General 02/26/07 [place] [address] RICARDO VELOZ 99801 PCP - Assigned PCP 07/15/11 12/30/18 Mildred Long MD [address] [place] [address] [address] [place] [address] INTERNAL MEDICINE - ENDOCRINOLOGY, DIABETES & METABOLISM 04/06/15 [place] [address] RICARDO VELOZ 09649 Assigned PCP 07/31/12 05/11/21 Tomy Brown DPM [address] [place] [address] Assigned Musculoskeletal Provider 10/02/20 03/30/22 [place] [address] RICARDO VELOZ [address] Assigned PCP 05/12/21 documented as of this encounter
--- OUTSIDE RECORDS SUMMARY | 2023-11-28 12:59 | XMS_ITS | Encounter Summary ---
Author Name Unknown Organization [facility] Address [address] [place] [address] Care Team Providers Care Steel Construction Worker Name Role Phone Brittany Long DO Primary Care Provider [phone] Mildred Long MD Unavailable [phone] Brittany Long DO Unavailable [phone] Brittany Long DO Unavailable [phone] Tomy Brown DPM Unavailable [phone] Brittany Long DO Unavailable [phone] Encounter Details Date Type Department Care Team (Late st Contact Info) Description 02/28/[address] [facility] [address] [place] [address] [phone] Monica Euceda CMA Social History Tobacco Use [...] filedocumented in this encounter Care Teams Steel Construction Worker Relationship Specialty [place] [address] [place] [address] PCP - General 02/26/07 [place] [address] [place] [address] PCP - Assigned PCP 07/15/11 12/30/18 Mildred Long MD [address] [place] [address] INTERNAL MEDICINE - ENDOCRINOLOGY, DIABETES & METABOLISM 04/06/15 [place] [address] [place] [address] Assigned PCP 07/31/12 05/11/21 Tomy Brown DPM [address] [place] [address] Assigned Musculoskeletal Provider 10/02/20 03/30/22 [place] [address] [place] [address] Assigned PCP 05/12/21 documented as of this encounter
--- OUTSIDE RECORDS SUMMARY | 2023-11-28 12:59 | XMS_ITS | Encounter Summary ---
Author Name Unknown Organization [facility] Address [address] [place] [address]. [place] [address] Care Team Providers Care Photonic Laboratory Technician Name Role Phone Brittany Long DO Primary Care Provider Mildred Long MD Unavailable [phone] Brittany Long DO Unavailable [phone] Brittany Long DO Unavailable [phone] Tomy Brown DPAlo Unavailable [phone] Brittany Long DO Unavailable [phone] Encounter Details Date Type Department Care Team (Late st Contact Info) Description 06/19/2018 MyC Medical Advice [facility] Centralized Scheduling [facility] [place] [address] María Starks Social History Tobacco Use Types Packs/Day Years [...] on filedocumented in this encounter Care Teams Photonic Laboratory Technician Relationship Specialty [place] [address] RICARDO VELOZ [address]66[address] PCP - General 02/26/07 [place] [address] [place] [address] PCP - Assigned PCP 07/15/11 12/30/18 Mildred Long MD [address] [place] [address] [address] [place] [address] INTERNAL MEDICINE - ENDOCRINOLOGY, DIABETES & METABOLISM 04/06/15 [place] [address] [place] [address] Assigned PCP 07/31/12 05/11/21 Tomy Brown DPM [address] [place] [address] Assigned Musculoskeletal Provider 10/02/20 03/30/22 [place] [address] [place] [address] Assigned PCP 05/12/21 documented as of this encounter
--- OUTSIDE RECORDS SUMMARY | 2023-11-28 12:59 | XMS_ITS | Encounter Summary ---
Author Name Unknown Organization [facility] Address [address] [place] [address] Care Team Providers Care Section Supervisor Name Role Phone Brittany Long DO Primary Care Provider [phone] Mildred Long MD Unavailable [phone] Brittany Long DO Unavailable [phone] Brittany Long DO Unavailable [phone] Tomy Brown DPM Unavailable [phone] Brittany Long DO Unavailable [phone] Encounter Details Date Type Department Care Team (Late st Contact Info) Description 12/22/2012 MyC Medical Advice [facility] [address] [place] [address] [phone] [place] [address] [place] [address] Social History Tobacco Use Types Packs/Day Years [...] on filedocumented in this encounter Care Teams Section Supervisor Relationship Specialty [place] [address] RICARDO VELOZ 78363 PCP - General 02/26/07 [place] [address] RICARDO VELOZ 17577 PCP - Assigned PCP 07/15/11 12/30/18 Mildred oLng MD [address] [place] [address] 101 [place] [address] INTERNAL MEDICINE - ENDOCRINOLOGY, DIABETES & METABOLISM 04/06/15 [place] [address] RICARDO VELOZ 58399 Assigned PCP 07/31/12 05/11/21 Tomy Brown DPM [address] [place] [address] Assigned Musculoskeletal Provider 10/02/20 03/30/22 [place] [address] RICARDO VELOZ 22265 Assigned PCP 05/12/21 documented as of this encounter
--- OUTSIDE RECORDS SUMMARY | 2023-11-28 12:59 | XMS_ITS | Encounter Summary ---
Author Name Unknown Organization [facility] Address [address] [place] [address]. [place] [address] Care Team Providers Care Shot Blaster Name Role Phone Brittany Long DO Primary Care Provider [phone] Mildred Long MD Unavailable [phone] Brittany Long DO Unavailable [phone] Brittany Long DO Unavailable [phone] Tomy Brown DPM Unavailable [phone] Brittany Long DO Unavailable [phone] Encounter Details Date Type Department Care Team (Late st Contact Info) Description 11/29/2010 MyC Medical Advice Initial Department [facility] Social History Tobacco Use Types Packs/Day Years [...] on filedocumented in this encounter Care Teams Shot Blaster Relationship Specialty [place] [address] RICARDO VELOZ [address]44 PCP - General 02/26/07 [place] [address] RICARDO VELOZ 40040 PCP - Assigned PCP 07/15/11 12/30/18 Mildred Long MD [address] [facility] 101 [place] [address] INTERNAL MEDICINE - ENDOCRINOLOGY, DIABETES & METABOLISM 04/06/15 [place] [address] RICARDO VELOZ 53875 Assigned PCP 07/31/12 05/11/21 Tomy Brown DPM [address] [facility] [place] [address] Assigned Musculoskeletal Provider 10/02/20 03/30/22 [place] [address] RICARDO VELOZ 57368 Assigned PCP 05/12/21 documented as of this encounter
--- OUTSIDE RECORDS SUMMARY | 2023-11-28 13:00 | XMS_ITS | Encounter Summary ---
Author Name Unknown Organization [facility] Address [address] [place] [address] Care Team Providers Care Board Saw Runner Name Role Phone Elsewhere, Pcp Primary Care Provider Unavailabl e Reason for Visit * Reason Onset Date Comments Pre-visit Intake 02/07/2023 Encounter Details Date Type Department Care Team (Latest Contact Info) Description 02/07/2023 1:45 PM CDT Clinical Communication Virtual Review in [place], [place] [address] [place], [place] [phone] Pre-visit Intake Social History Tobacco Use Types Packs/Day Years Used Date Smoking Tobacco: Never Passive Smoke Exposure: Past Smokeless Tobacco: Never Tobacco Cessation:Counseling Given: Not Answered Nutrition Answer Date Recorded Nutrition: EVOO Fat Source Unknown 12/26 Nutrition: Servings of Fruits/Vegetables per Day Not on file 12/26/2020 Dental Answer Date Recorded Dental: Regular Dentist Unknown 12/27/19 Sex and Gender Information Value Date Recorded Sex Assigned at Not on file Gender Identity Not on file Sexual Orientation Not on file documented as of this encounter Plan of Treatment Not on file documented as of this encounter Visit Diagnoses Not on filedocumented in this encounter Care Teams Board Saw Runner Relationship Specialty Start Date End Date Elsewhere, Pcp PCP - General Family Medicine 06/19/21 documented as of this encounter
--- OUTSIDE RECORDS SUMMARY | 2023-11-28 13:00 | XMS_ITS | Clinical Summary ---
Author Name Unknown Organization [facility] Address [address] [place] [id number] Care Team Providers Care Carpet Journeyman Name Role Phone Elsewhere, Pcp Primary Care Provider Unavailabl e Source Comments Patient records contain information from all sites at [facility]. For routine questions regarding patient records, call [phone] during business hours, M-F 8:00 AM - 5:00 PM Central Time. Record requests for emergency care only can be directed to [phone] at any time.[facility] Allergies Active Allergy Reactions Criticality Noted Date Comments Iodine Rash Low 03/04/2007 OPEN SORES from kelp that the patient ate Medications Medication Sig Dispensed Refills Start Date End Date Status enalapril (VASOTEC) 20 mg tablet 0 09/29/2019 Active hydroCHLOROthiazide (HYDRODIURIL) 25 mg tablet 0 10/15/2019 Active irbesartan (AVAPRO) 300 mg tablet 0 09/29/2019 Active metFORMIN XR (GLUCOPHAGE-XR) 500 mg 24 hr tablet 0 10/01/2019 Active metoprolol succinate (TOPROL-XL) 100 mg 24 hr tablet 0 10/15/2019 Active pioglitazone (ACTOS) 30 mg tablet 0 10/01/2019 Active valsartan (DIOVAN) 160 mg tablet 0 10/29/2019 Active magnesium gluconate (MAGONATE) 27 mg (500 mg) tablet Take 500 mg by mouth. 0 Active acetaminophen (TYLENOL 8 HR) 650 mg ER tablet Take 1,300 mg by mouth every 8 (eight) hours. 0 Active cholecalciferol (VITAMIN D3) 50 mcg (2,000 Unit) capsule Take 50 mcg by mouth every evening. 0 Active amLODIPine (NORVASC) 10 mg tablet Take 1 tablet by mouth daily. 0 12/05/2022 Active atorvastatin (LIPITOR) 20 mg tablet Take 20 mg by mouth daily. 0 05/15/2022 Active furosemide (LASIX) 20 mg tablet Take 1 tablet by mouth daily as needed. 0 06/25/2022 Active glipiZIDE (GLUCOTROL XL) 5 mg 24 hr tablet Take 1 tablet by mouth daily. 0 05/15/2022 Active nabumetone (RELAFEN) 750 mg tablet Take 750 mg by mouth 2 (two) times a day as needed. 0 05/15/2022 Active aspirin 81 mg chewable tablet Chew 81 mg daily. 0 11/20/2022 Active ascorbic acid, vitamin C, (VITAMIN C) 1,000 mg tablet Take 1 g by mouth daily. 0 11/20/2022 Active potassium citrate 99 mg capsule Take 99 mg by mouth daily. 0 11/20/2022 Active ZINC ACETATE ORAL Take 50 mg by mouth daily. 0 11/20/2022 Active calcium carbonate (CALCIUM 500 ORAL) Take 1,200 mg by mouth daily. 0 Active loperamide HCl (IMODIUM A-D ORAL) Take 1 tablet by mouth daily. 0 Active Active Problems Problem Noted Date Diagnosed Date Morbid Obesity 08/17/2015 Chronic Kidney Disease Stage 2 Glomerular Filtration Rate 60 To 89 10/22/2012 Diabetes Mellitus Type 2 03/04/2007 Overview: 10/27/08- John Mak, [facility]. No retinopathy, R 20/20, L 20/20, recommended f/u in 12 months. Diagnosed age 51. Controlled with oral meds. Has only ever been on Actos. 07/25/07-[facility]: 20/20 each eye. Dilated fundus exam revealed no ocular signs of diabetes. Return 1 year. John Li, OD 10/30/10-Dr. Li. No retinopathy. F/u in 12 months. Hyperlipidemia 03/04/2007 Overview: [place] 10-year CHD Risk Score: 20% (0 Total [...] history of CHD. -- Points: x2 Hypertension 03/04/2007 Other Hypertrophic Osteoarthropathy Multiple Sit es 03/04/2007 Social History Tobacco Use Types Packs/Day Years Used Date Smoking Tobacco: Never Passive Smoke Exposure: Past Smokeless Tobacco: Never Tobacco Cessation:Counseling Given: Not Answered Nutrition Answer Date Recorded Nutrition: EVOO Fat Source Unknown 12/26 Nutrition: Servings of Fruits/Vegetables per Day Not on file 12/26/2020 Dental Answer Date Recorded Dental: Regular Dentist Unknown 12/27/19 21 Sex and Gender Information Value Date Recorded Sex Assigned at Not on file Gender Identity Not on file Sexual Orientation Not on file Last Filed Vital Signs Vital Sign Reading Time Taken Comments Blood Pressure 158/80 02/12/2023 1:34 PM CDT Pulse 65 02/12/2023 1:34 PM CDT Temperature 37 ??C (98.6 ??F) 06/19/2021 1:06 PM CDT Respiratory Rate - - Oxygen Saturation 96% 06/19/2021 3:30 PM CDT Inhaled Oxygen Concentration - - Weight 118 kg (260 lb 9.3 oz) 02/12/2023 1:33 PM CDT Height 159.7 cm (5' 2.87) 02/12/2023 1:33 PM CD T Body Mass Index 46.35 02/12/2023 1:33 PM CDT Plan of Treatment Health Maintenance Due Date Last Done Comments CT Colonography 1949 Colonoscopy 1950 Diabetic Office Visit with F oot Exam 1949 Dilated Eye Exam 1949 FIT 1949 Hepatitis C Screening 1950 Urine Albumin 1950 Hemoglobin A1C 11/02/2021 05/02/2021, 11/28, 05/09/2020, Additional history exists Cologuard 04/15/2022 04/15/2019 Colorectal Cancer Screening 04/15/2022 Office Visit for Blood Press ure Check / Re-check 05/14/2023 02/12/2023 Creatinine Level (Kidney Fun ction Test) 05/15/2023 05/15/2022, 06/19/2021, 05/02/2021, Additional history exists Potassium Level 05/15/2023 05/15/2022, 05/29, 05/02/2021, Additional history exists Sodium Level 05/15/2023 05/15/2022, 05/29, 05/02/2021, Additional history exists COVID-19 Vaccine (4 - 2022-2 4 season) 2023 09/18/2021, 01/26/2021, 12/29/2020 Depression Screening (Annual PHQ-2) 10/28/2023 Fall Risk Screen (Annual) 10/28/2023 Mammogram 12/04/2023 12/04/2022, 08/28, 09/11/2018, Additional history exists Lipid (Cholesterol) Screening 05/15/2027, 05/02/2021, 05/09/2020, Additional history exists DTaP,Tdap,and Td Vaccines (3 - Td or Tdap) 08/28/2028 08/28/2018, 09/21/2008, 04/03/2006 Pneumococcal vaccine (65+ years) Completed 01/12/2016, 06/30/2015, 09/03/2003 Zoster Vaccines Completed 09/29/2019, 06/29, 05/23/2010 Bone Density Scan (Osteoporo sis Screen) Discontinued 12/04/2022 Influenza Vaccine Completed 08/08/2023, , 07/22/2021, Additional history exists Care Teams Carpet Journeyman Relationship Specialty Start Date End Date Elsewhere, Pcp PCP - General Family Medicine 06/19/21
--- OUTSIDE RECORDS SUMMARY | 2023-11-28 13:00 | XMS_ITS | Encounter Summary ---
Author Name Unknown Organization [place] Address [address] [place] [address] Care Team Providers Care Rolls Mill Operator Name Role Phone Brittany Long DO Primary Care Provider [phone] Mildred Long MD Unavailable [phone] Brittany Long DO Unavailable [phone] Brittany Long DO Unavailable [phone] Tomy Brown DPM Unavailable [phone] Brittany Long DO Unavailable [phone] Encounter Details Date Type Department Care Team (Late st Contact Info) Description 05/07/2008 Abstract [facility] [place] [address] [place], [place] [id number] ABSTRACTING RESULTS (Primary Dx) Social History Tobacco Use Types [...] on file documented as of this encounter Procedures Procedure Name Priority Date/Time Associated Diagnosis Comments HCL UA MICRO IF POSITIVE Routine 02/27/2006 ABSTRACTING RESULTS CL AFF CBC WITH PLATELETS, DIFF Routine 02/27/2006 ABSTRACTING RESULTS HCL THYROXINE, TOTAL Routine 02/27/2006 ABSTRACTING RESULTS HCL COMPREHENSIVE METABOLIC PANEL Routine 02/27/2006 ABSTRACTING RESULTS HCL T3, TOTAL Routine 02/27/2006 ABSTRACTING RESULTS HCL TSH Routine 02/27/2006 ABSTRACTING RESULTS HCL GLYCATED HEMOGLOBIN Routine 02/27/2006 ABSTRACTING RESULTS CL AFF A.M.A. LIPID PANEL Routine 02/27/2006 ABSTRACTING RESULTS documented in this encounter Results * T3, TOTAL (02/27/2006) T3 Total 83 60 - 181 ng/mL MISYS 02/27/2006 [facility] MISYS * THYROXINE, TOTAL (02/27/2006) T4 Total 7.9 MISYS 02/27/2006 [email or web address] MISYS * UA MICRO IF POSITIVE (02/27/2006) Urine Results normal UA MISYS 02/27/2006 [facility] MISYS * TSH- (02/27/2006) Pathologist [facility] TSH 2.22 mcU/mL MISYS 02/27/2006 [facility] MISYS * A.M.A. LIPID PANEL (02/27/2006) Cholesterol 160 115 - 199 mg/dL [facility] Triglycerides 217 mg/dL [facility] HDL Cholesterol 45 mg/dL [facility] LDL Cholesterol Calculated 72 mg/dL [facility] VLDL-Cholesterol ng/dL [facility] Cholesterol/HDL Ratio 3.6 MISYS 02/27/2006 Brittany Dewitt [facility] Performing Organization Address [facility]/State/ZIP Co de Phone Number MISYS * HEMOGLOBIN A1C (02/27/2006) Hemoglobin A1C 6.7 % MISYS 02/27/2006 Brittanytevin Dewitt [facility] Performing Organization Address [facility] Co de Phone Number MISYS * A.M.A. COMPREHENSIVE MET.PANEL (02/27/2006) Sodium 142 mmol/L [facility] Potassium 4.1 mmol/L [facility] Chloride 105 mmol/L [facility] Carbon Dioxide 25 mmol/L [facility] Anion Gap mmol/L [facility] Glucose 160 mg/dL [facility] Urea Nitrogen 24 mg/dL [facility] Creatinine 0.8 mg/dL [facility] Calcium 9.3 mg/dL [facility] Protein Total 6.5 g/dL [facility] Albumin 4.3 g/dL [facility] Bilirubin Total 0.5 mg/dL [facility] Alkaline Phosphatase 56 U/L [facility] AST 14 U/L [facility] ALT 22 U/L MISYS 02/27/2006 Brittany Long LABORAT[facility] MISYS * CBC WITH PLATELETS, DIFF (02/27/2006) WBC 4.1 10^9/L M[facility] RBC Count 3.77 10^12/L [facility] Hemoglobin 11.9 gm/dL [facility] Hematocrit 33.8 % [facility] MCV 98.7 fl MISYS MCH 31.6 pg MISYS MCHC 35.2 g/dL MIS[facility] RDW 13.9 % M[facility] Platelet Count 167 150 - 450 10^9/L MISYS % Neutrophils 56.3 % MISYS % Lymphocytes 37.9 % MISYS % Monocytes 4.8 % MISYS % Eosinophils 0.8 % MISYS % Basophils 0.2 % MISYS 02/27/2006 Brittany Long DO LABORATORY MISYS documented in this encounter Visit Diagnoses Diagnosis ABSTRACTING RESULTS- Primary documented in this encounter Care Teams Rolls Mill Operator Relationship Specialty [place] [address] [place] [address] PCP - General 02/26/07 [place] [address] [place] [address] PCP - Assigned PCP 07/15/11 12/30/18 Mildred Long MD [address] [facility] [address] [place] [address] INTERNAL MEDICINE - ENDOCRINOLOGY, DIABETES & METABOLISM 04/06/15 [place] [address] [place] [place] [address] Assigned PCP 07/31/12 05/11/21 Tomy Brown DPM [address] [place] [address] Assigned Musculoskeletal Provider 10/02/20 03/30/22 [place] [address] [place] [place] [address] Assigned PCP 05/12/21 documented as of this encounter
--- OUTSIDE RECORDS SUMMARY | 2023-11-28 13:00 | XMS_ITS | Encounter Summary ---
Author Name Unknown Organization [facility] Address [address] [place] [address] Care Team Providers Care Cad Technician Name Role Phone Elsewhere, Pcp Primary Care Provider Unavailabl e Reason for Referral * Outpatient (Routine) - Closed Specialty Diagnoses / Procedures Referred By Contac t Referred To Contact Diagnoses Screening Osteoporosis Procedures BMD Bone Density Spine Hips Emmy Fontenot, C.N.P. [address] [place] [address] [facility] Region Referral ID Status Reason Start Date Expiration Date Visits Re quested Visits Authorized [id number] Closed 11/21/2022 11/21/2023 1 1 MACY PICKING TECHNICIAN Reason for Visit * Outpatient (Routine) - Closed Specialty Diagnoses / Procedures Referred By Contac t Referred To Contact Diagnoses Screening Osteoporosis Procedures BMD Bone Density Spine Hips Emmy Fontenot, C.N.P. [address] [place] [address] [facility] Region Referral ID Status Reason Start Date Expiration Date Visits Re quested Visits Authorized [id number] Closed 11/21/2022 11/21/2023 1 1 Encounter Details Date Type Department Care Team (Late st Contact Info) Description 12/04/2022 12:55 PM PHARMACY PICKING TECHNICIAN - 12/04/2022 11:59 PM PHARMACY PICKING TECHNICIAN Hospital Encounter Department of Radiology in [address] [phone] Emmy Fontenot, C.N.P. [address] [place] [address] Screening Osteoporosis Discharge Disposition: Home or Self Care Social History Tobacco Use Types Packs/Day Years Used Date Smoking Tobacco: Never Nutrition Answer Date Recorded Nutrition: EVOO Fat Source Unknown 12/26 Nutrition: Servings of Fruits/Vegetables per Day Not on file 12/26/2020 Dental Answer Date Recorded Dental: Regular Dentist Unknown 12/27/19 21 Sex and Gender Information Value Date Recorded Sex Assigned at Not on file Gender Identity Not on file Sexual Orientation Not on file documented as of this encounter Medications at Time of Discharge Medication Sig Dispensed Refills Start Date End Date acetaminophen (TYLENOL 8 HR) 650 mg ER tablet Take 1,300 mg by mouth every 8 (eight) hours. 0 ascorbic acid, vitamin C, (VITAMIN C) 1,000 mg tablet Take 1 g by mouth daily. 0 11/20/2022 aspirin 81 mg chewable tablet Chew 81 mg daily. 0 11/20/2022 atorvastatin (LIPITOR) 20 mg tablet Take 20 mg by mouth daily. 0 05/15/2022 cholecalciferol (VITAMIN D3) 50 mcg (2,000 Unit) capsule Take 50 mcg by mouth every evening. 0 enalapril (VASOTEC) 20 mg tablet 0 09/29/2019 furosemide (LASIX) 20 mg tablet Take 1 tablet by mouth daily as needed. 0 06/25/2022 glipiZIDE (GLUCOTROL XL) 5 mg 24 hr tablet Take 1 tablet by mouth daily. 0 05/15/2022 hydroCHLOROthiazide (HYDRODIURIL) 25 mg tablet 0 10/15/2019 irbesartan (AVAPRO) 300 mg tablet 0 09/29/2019 magnesium gluconate (MAGONATE) 27 mg (500 mg) tablet Take 500 mg by mouth. 0 metFORMIN XR (GLUCOPHAGE-XR) 500 mg 24 hr tablet 0 10/01/2019 metoprolol succinate (TOPROL-XL) 100 mg 24 hr tablet 0 10/15/2019 nabumetone (RELAFEN) 750 mg tablet Take 750 mg by mouth 2 (two) times a day as needed. 0 05/15/2022 pioglitazone (ACTOS) 30 mg tablet 0 10/01/2019 potassium citrate 99 mg capsule Take 99 mg by mouth daily. 0 11/20/2022 valsartan (DIOVAN) 160 mg tablet 0 10/29/2019 ZINC ACETATE ORAL Take 50 mg by mouth daily. 0 11/20/2022 documented as of this encounter Plan of Treatment Not on file documented as of this encounter Procedures Procedure Name Priority Date/Time Associated Diagnosis Comments BMD BONE DENSITY SPINE HIPS RAD - Routine (most inpatients and all outpatients) 12/04/2022 1:40 PM PHARMACY PICKING TECHNICIAN Screening Osteoporosis documented in this encounter Results * BMD Bone Density Spine Hips (12/04/2022 1:40 PM PHARMACY PICKING TECHNICIAN) Anatomical Region Laterality Modality Hip, Lumbar Spine, Nuclear M edicine RST LOS, Musculoskeletal ARZ LOS, Muskuloskeletal FLA LOS N/A Radio graphic Imaging 12/04/2022 3:15 PM PHARMACY PICKING TECHNICIAN Impressions 12/04/2022 3:16 PM PHARMACY PICKING TECHNICIAN Normal bone mineral density. Narrative 12/04/2022 3:16 PM PHARMACY PICKING TECHNICIAN EXAM: ??BMD BONE DENSITY SPINE HIPS Bone Mineral Density (BMD) analysis performed on [employer] with serial number [id number]. ? FINDINGS: Left Hip: Femur Neck: BMD = 1.074 g/cm2 T-score = 0.3 ?Z-score = 2.1 Total Hip: BMD = 1.162 g/cm2 T-score = 1.2 ?Z-score = 2.8 Right Hip: Femur Neck: BMD = 1.022 g/cm2 T-score = -0.1 ?? Z-score = 1.7 Total Hip: BMD = 1.121 g/cm2 T-score = 0.9 ?Z-score = 2.5 Lumbar Spine: L4: BMD = 1.467 g/cm2 Total Lumbar Spine (L4): BMD = 1.467 g/cm2 T-score = 2.2 ?Z-score = 3.9 ? Please note: A more comprehensive DXA report, including images and graphs, is available in QREADS. In the absence of other causes of low BMD or demonstrated skeletal fragility, osteoporosis may be diagnosed in post-menopausal women and men at or above age 50 when the T-score is at or below -2.5 as defined by the WHO. Low bone density is present at T-scores between -1 and - 2.5. The diagnosis in pre-menopausal women and men < age 50 can be based on low bone density or evidence of skeletal fragility in the appropriate clinical setting. Today's spine scan is considered non-diagnostic according to ISCD Guidelines. Hips may be more reliable for future follow-up. Patient does not meet ISCD guidelines for FRAX calculations. (T-score) Procedure Note Mora Cristobal M.D. - 12/04/2022 EXAM: BMD BONE DENSITY SPINE HIPS Bone Mineral Density (BMD) analysis performed on Dabblewith serial number [id number]. FINDINGS: Left Hip: Femur Neck: BMD = 1.074 g/cm2 T-score = 0.3 Z-score = 2.1 Total Hip: BMD = 1.162 g/cm2 T-score = 1.2 Z-score = 2.8 Right Hip: Femur Neck: BMD = 1.022 g/cm2 T-score = -0.1 Z-score = 1.7 Total Hip: BMD = 1.121 g/cm2 T-score = 0.9 Z-score = 2.5 Lumbar Spine: L4: BMD = 1.467 g/cm2 Total Lumbar Spine (L4): BMD = 1.467 g/cm2 T-score = 2.2 Z-score = 3.9 Please note: A more comprehensive DXA report, including images and graphs,is available in [employer]EADS. In the absence of other causes of low BMD or demonstrated skeletalfragility, osteoporosis may be diagnosed in post-menopausal women and men at or above age 50 when theT-score is at or below -2.5 as defined by the WHO. Low bone density is present at T-scores between -1and - 2.5. The diagnosis in pre-menopausal women and men < age 50 can be based on low bone density orevidence of skeletal fragility in the appropriate clinical setting. Today's spine scan is considered non-diagnostic according to ISCDGuidelines. Hips may be more reliable for future follow-up. Patient does not meet ISCD guidelines for FRAX calculations. (T-score) IMPRESSION: Normal bone mineral density. Emmy BLOOM DXA PROCED URES documented in this encounter Visit Diagnoses Diagnosis Screening Osteoporosis documented in this encounter Care Teams Cad Technician Relationship Specialty Start Date End Date Elsewhere, Pcp PCP - General Family Medicine 06/19/21 documented as of this encounter
--- OUTSIDE RECORDS SUMMARY | 2023-11-28 13:00 | XMS_ITS | Referral Summary ---
Author Name Unknown Organization [facility] Address [address] [place] [address] Care Team Providers Care Bronzer Name Role Phone Elsewhere, Pcp Primary Care Provider Unavailabl e Source Comments Patient records contain information from all sites at [facility]. For routine questions regarding patient records, call [phone] during business hours, M-F 8:00 AM - 5:00 PM Central Time. Record requests for emergency care only can be directed to [phone] at any time.[facility] Allergies Active Allergy Reactions Criticality Noted Date [...] Type 2 03/04/2007 Overview: 10/27/08- John Mak, [facility]. No retinopathy, R 20/20, L 20/20, recommended f/u in 12 months. Diagnosed age 51. Controlled with oral meds. Has only ever been on Actos. 07/25/07-[facility]: 20/20 each eye. Dilated fundus exam revealed no ocular signs of diabetes. Return 1 year. John Li, OD 10/30/10-Dr. Li. No retinopathy. F/u in 12 months. Hyperlipidemia 03/04/2007 Overview: [place] 10-year CHD Risk Score: 20% (0 Total [...] 02/12/2023 1:33 PM CDT Plan of Treatment Not on file Care Teams Bronzer Relationship Specialty Start Date End Date Elsewhere, Pcp PCP - General Family Medicine 06/19/21
--- OUTSIDE RECORDS SUMMARY | 2023-11-28 13:00 | XMS_ITS | Encounter Summary ---
Author Name Unknown Organization [facility] Address [address] [place] [address] Care Team Providers Care Horticultural Agent Name Role Phone Elsewhere, Pcp Primary Care Provider Unavailabl e Reason for Referral * Outpatient (Routine) - Closed Specialty Diagnoses / Procedures Referred By Benitez navarro Referred To Contact Endocrinology Diagnoses Hyperthyroidism Subclinical John Blanco III, M.D. [address] [place] [address] [facility] Referral ID Status Reason Start Date Expiration Date Visits Re quested Visits Authorized [id number] Closed 02/12/2023 02/11/2026 1 1 Scheduling Instructions 30 minute phone visit, Saturday am. Reason for Visit * Outpatient (Routine) - Closed Specialty Diagnoses / Procedures Referred By Benitez navarro Referred To Contact Endocrinology Diagnoses Other Specified Abnormal Findings Of Blood Chemistry Goiter Multinodular Nontoxic Emmy Fontneot, C.N.P. [address] [place] [address] [facility] Referral ID Status Reason Start Date Expiration Date Visits Re quested Visits Authorized [id number] Closed 01/15/2023 01/15/2024 1 1 Encounter Details Date Type Department Care Team (Latest Contact Info) Description 02/12/2023 2:30 PM CDT Comprehensive Visit Division of Endocrinology in [address] [address] John Blanco III, M.D. Hyperthyroidism Subclinical (Primary Dx); Other Specified Abnormal Findings Of Blood Chemistry; Goiter Multinodular Nontoxic Social History Tobacco Use Types Packs/Day Years Used Date Smoking Tobacco: Never Passive Smoke Exposure: Past Smokeless Tobacco: Never Nutrition Answer Date Recorded Nutrition: EVOO Fat Source Unknown 12/26 Nutrition: Servings of Fruits/Vegetables per Day Not on file 12/26/2020 Dental Answer Date Recorded Dental: Regular Dentist Unknown 12/27/19 21 Sex and Gender Information Value Date Recorded Sex Assigned at Not on file Gender Identity Not on file Sexual Orientation Not on file documented as of this encounter Last Filed Vital Signs Vital Sign Reading Time Taken Comments Blood Pressure 158/80 02/12/2023 1:34 PM CDT Pulse 65 02/12/2023 1:34 PM CDT Temperature - - Respiratory Rate - - Oxygen Saturation - - Inhaled Oxygen Concentration - - Weight 118 kg (260 lb 9.3 oz) 02/12/2023 1:33 PM CDT Height 159.7 cm (5' 2.87) 02/12/2023 1:33 PM CD T Body Mass Index 46.35 02/12/2023 1:33 PM CDT documented in this encounter Consult Notes * John Blanco III, M.D. - 02/12/2023 2:30 PM CDT SUBJECTIVE REASON FOR CONSULT Mrs. Quach is referred by Ms. Emmy Fontenot for evaluation of mild or subclinical hyperthyroidism. HISTORY OF PRESENT ILLNESS Mild or subclinical hyperthyroidism Mrs. Kiana Quach is a very pleasant lady, who lives in [place], [place]. She is accompanied by her today for an opinion about thyroid dysfunction. She saw her primary care provider, Ms. Fontenot, a few weeks ago, and some thyroid function testing was performed. She has been having symptoms of fatigue and excessive tiredness, cold intolerance, poor sleep, and arthritis. On December 11 she had a TSH that was low at 0.03. A month later on January 08 she had repeat thyroid function testing that included a TSH that was still low at 0.085 and a free T4 that was normal at 1.1. She subsequently had an ultrasound of her thyroid completed in [place] on January 30 that showed some very small, benign-appearing nodules over both lobes of the thyroid and one 6-mm nodule with minimal suspicious features. Mrs. Quach tells me she has known of some nodularity in her thyroid for a number of years. It was first discovered when she was in [place] in 2004. She tells me she had an FNA of her thyroid at that time that was negative and benign. There was apparently a cyst that formed prior to that. She had followup in the [facility] with several ultrasound exams reviewing these nodules in the thyroid and, in fact, had another FNA about 5 years ago that was again negative and benign. We have no other details about that. Currently she denies palpitations or tachycardia. Her weight has been slowly increasing. She is quite fatigued, but she also tells me she sleeps very poorly and that she has to sleep sitting up in a chair almost always. She has not had any sleep evaluation to date. There is a family history of thyroid disease in her sister, whom she believes had Graves' disease and was treated with radioactive iodine. Past medical history, family history, social history, and review of systems were reviewed. OBJECTIVE PHYSICAL EXAMINATION Vital Signs: Reviewed. General: Healthy-appearing, but generalized obesity. No acute distress. HEENT: Negative. Lymph: No adenopathy within neck or elsewhere. Thyroid: Is not palpable. She appears clinically euthyroid. Lungs: Negative. Heart: Negative. DIAGNOSTICS We reviewed the ultrasound images as described as well as her thyroid function tests that are notedabove. ASSESSMENT / PLAN #1 Mild or subclinical hyperthyroidism #2 Small thyroid nodules below threshold for FNA I spoke with Mrs. Quach about her mild thyroid dysfunction. This is likely either very early or mild Graves' disease or perhaps transient thyroiditis. The improvement in the TSH between November and december may suggest the latter. Today we are repeating her thyroid function test, T4, TSH, and a T3, and will also check thyrotropin receptor antibody looking for evidence of Graves' disease. I will speak with her when we have these results later in the week. Will pursue whatever we find. I am hopefulthat if this is transient thyroiditis, the levels may already have returned to the normal range. We also spoke about the small nodules in the thyroid. They are below the threshold for fine-needle aspiration biopsy and can be observed. I recommend recheck of these nodules by ultrasound in 2 or 3 years. John Blanco III, M.D. CT CT Job ID: [id number] documented in this encounter Plan of Treatment Scheduled Referrals Name Type Priority Associated Diagnoses Order Schedule Endocrinology office visit (clinic) Outpatient Referral Routine Hyperthyroidism Subclinical 1 Occurrences starting 02/12/2023 until 05/14/2024 documented as of this encounter Results * Thyrotropin Receptor Antibody (02/12/2023 2:22 PM CDT) Pathologist [facility] Thyrotropin Receptor Ab, S 1.15 0.00 - 1.75 IU/L 02/12/2023 7:36 PM CDT [facility] Comment: ----ADDITIONAL INFORMATION---- At a decision limit of 1.75 IU/L, this assay has 97% sensitivity and 99% specificity for detection of Graves' disease. In healthy individuals and in patients with thyroid disease without diagnosis of Graves' disease, the upper limit of anti-TSHR values are 1.22 IU/L and 1.58 IU/L, respectively (97.5th percentiles). Blood (Blood, Venous) 02/12/2023 2:22 PM CDT 02/12/2023 6:51 PM CDT John Blanco III, M.D. LAB BLOOD ADD-ON Performing Organization Address [facility]/ZIP Co de Phone Number [facility] [address] [place] [address] [facility] [address] [place] [address] * S-TSH (Thyroid-Stimulating Hormone - Sensitive) (02/12/2023 2:22 PM CDT) Pathologist [facility] TSH, Sensitive 2.3 0.3 - 4.2 mIU/L 02/12/2023 3:35 PM CDT DT Blood (Blood, Venous) 02/12/2023 2:22 PM CDT 02/12/2023 3:04 PM CDT John Blanco III, M.D. LAB BLOOD ADD-ON Performing Organization Address City/[facility]/ZIP Co de Phone Number [facility] [address] [place] [address], [facility] DTL [facility] [address] [place] [address] * T3 (Triiodothyronine), Total (02/12/2023 2:22 PM CDT) T3 (Triiodothyroni ne), Total, S 111 80 - 200 ng/dL 02/12/2023 3:35 PM CDT DTL Blood (Blood, Venous) 02/12/2023 2:22 PM CDT 02/12/2023 3:04 PM CDT John Blanco III, M.D. LAB BLOOD ADD-ON [facility] [address] [place] [address], [address] [address] * T4 (Thyroxine), Free (02/12/2023 2:22 PM CDT) T4 (Thyroxine), Free, S 1.3 0.9 - 1.7 ng/dL 02/12/2023 3:35 PM CDT DTL Blood (Blood, Venous) 02/12/2023 2:22 PM CDT 02/12/2023 3:04 PM CDT John Blanco III, M.D. LAB BLOOD ADD-ON [facility] [address] [place] [address], [address] [address] documented in this encounter Visit Diagnoses Diagnosis Hyperthyroidism Subclinical- Primary Other Specified Abnormal Findings Of Blood Chemistry Goiter Multinodular Nontoxic documented in this encounter Care Teams Horticultural Agent Relationship Specialty Start Date End Date Elsewhere, Pcp PCP - General Family Medicine 06/19/21 documented as of this encounter
--- OUTSIDE RECORDS SUMMARY | 2023-11-28 13:00 | XMS_ITS ---
Author Name Unknown Organization [facility] Address [address] [place] [address] Care Team Providers Care Gambling Monitor Name Role Phone Unavailable Unavailable Unavailable Surgery Details Not on file Complications Check Surgery Details section. Procedure Estimated Blood Loss Check Surgery Details section. Procedure Findings Check Surgery Details section. Procedure Specimens Taken Check Surgery Details section.
--- OUTSIDE RECORDS SUMMARY | 2023-11-28 13:00 | XMS_ITS | Encounter Summary ---
Author Name Unknown Organization [facility] Address [address] [place] [address] Care Team Providers Care Sugar Mill Worker Name Role Phone Elsewhere, Pcp Primary Care Provider Unavailabl e Encounter Details Date Type Department Care Team (Latest Contact Info) Description 02/12/2023 2:10 PM CDT - 02/12/2023 11:59 PM CDT Hospital Encounter Department of Laboratory Medicine and Pathology, [facility] in [place], [place] [address] [place] [address] John Blanco III, M.D. Hyperthyroidism Subclinical Discharge Disposition: Home or Self Care Social [...] by mouth every 8 (eight) hours. 0 amLODIPine (NORVASC) 10 mg tablet Take 1 tablet by mouth daily. 0 12/05/2022 ascorbic acid, vitamin C, (VITAMIN C) 1,000 mg tablet Take 1 g by mouth daily. 0 11/20/2022 aspirin 81 mg chewable tablet Chew 81 mg daily. 0 11/20/2022 atorvastatin (LIPITOR) 20 mg tablet Take 20 mg by mouth daily. 0 05/15/2022 calcium carbonate (CALCIUM 500 ORAL) Take 1,200 mg by mouth daily. 0 cholecalciferol (VITAMIN D3) 50 mcg (2,000 Unit) [...] irbesartan (AVAPRO) 300 mg tablet 0 09/29/2019 loperamide HCl (IMODIUM A-D ORAL) Take 1 tablet by mouth daily. 0 magnesium gluconate (MAGONATE) 27 mg (500 mg) [...] Procedure Name Priority Date/Time Associated Diagnosis Comments THYROTROPIN RECEPTOR AB, S Routine 02/12/2023 2:22 PM CDT Hyperthyroidism Subclinical T3 (TRIIODOTHYRONINE), TOT, S Routine 02/12/2023 2:22 PM CDT Hyperthyroidism Subclinical THYROID-STIMULATING HORMONE-SENSITIVE (S-TSH) Routine 02/12/2023 2:22 PM CDT Hyperthyroidism Subclinical T4 (THYROXINE), FREE, S Routine 02/12/2023 2:22 PM CDT Hyperthyroidism Subclinical documented in this encounter Results * Thyrotropin Receptor Antibody (02/12/2023 2:22 PM CDT) Pathologist [facility] Thyrotropin Receptor Ab, S 1.15 0.00 - 1.75 IU/L 02/12/2023 7:36 PM CDT [facility] Comment: ----ADDITIONAL INFORMATION---- At a decision [...] M.D. LAB BLOOD ADD-ON Performing Organization Address City/[facility]/ZIP Co de Phone Number [facility] [address] [place] [address] [facility] [address] [place] [address] * S-TSH (Thyroid-Stimulating Hormone - Sensitive) (02/12/2023 2:22 PM CDT) [facility] TSH, Sensitive 2.3 0.3 - 4.2 mIU/L 02/12/2023 3:35 PM CDT [facility] Blood (Blood, Venous) 02/12/2023 2:22 PM CDT 02/12/2023 3:04 PM CDT John Blanco III, M.D. LAB BLOOD ADD-ON Performing Organization Address City/[facility]/ZIP Co de Phone Number [facility] [address] [place] [address], [facility] [address] [place] [address] * T3 (Triiodothyronine), Total (02/12/2023 2:22 PM CDT) Pathologist [facility] T3 (Triiodothyroni ne), Total, S 111 80 - 200 ng/dL 02/12/2023 3:35 PM CDT DTL Blood (Blood, Venous) 02/12/2023 2:22 PM CDT 02/12/2023 3:04 PM CDT John Blanco III, M.D. LAB BLOOD ADD-ON Performing Organization Address City/[facility] Co de Phone Number [facility] [address] [place] [address], [facility] [address] [place] [address] * T4 (Thyroxine), Free (02/12/2023 2:22 PM CDT) T4 (Thyroxine), Free, S 1.3 0.9 - 1.7 ng/dL 02/12/2023 3:35 PM CDT DTL Blood (Blood, Venous) 02/12/2023 2:22 PM CDT 02/12/2023 3:04 PM CDT John Blanco III, M.D. LAB BLOOD ADD-ON Performing Organization Address [facility] Co de Phone Number [facility] [address] [place] [address], [address] [address] documented in this encounter Visit Diagnoses Diagnosis Hyperthyroidism Subclinical documented in this encounter Care Teams Sugar Mill Worker Relationship Specialty Start Date End Date Elsewhere, Pcp PCP - General Family Medicine 06/19/21 documented as of this encounter
--- OUTSIDE RECORDS SUMMARY | 2023-11-28 13:00 | XMS_ITS | Encounter Summary ---
Author Name Unknown Organization [facility] Address [address] [place] [address] Care Team Providers Care Second Grade Teacher Name Role Phone Elsewhere, Pcp Primary Care Provider Unavailabl e Reason for Visit * Outpatient (Routine) - Closed Specialty Diagnoses / Procedures Referred By Benitez navarro Referred To Contact Endocrinology Diagnoses Hyperthyroidism Subclinical John Blanco III, M.D. [address] [place] [address] [facility] Referral ID Status Reason Start Date Expiration Date Visits Re quested Visits Authorized [id number] Closed 02/12/2023 02/11/2026 1 1 Encounter Details Date Type Department Care Team (Latest Contact Info) Description 02/15/2023 11:15 AM CDT Virtual Visit Division of Endocrinology in [place], [place] [address] [place] [address] John Blanco III, M.D. Thyroiditis Subacute (Primary Dx); Hyperthyroidism Subclinical Social History Tobacco Use Types Packs/Day Years [...] on file documented as of this encounter Progress Notes * John Blanco III, M.D. - 02/15/2023 11:15 AM CDT SUBJECTIVE This was a telephone visit. CHIEF COMPLAINT/REASON FOR VISIT I completed a telephone visit with Mrs. Quach from my home office and her home in [place], [place], for followup of subclinical hyperthyroidism. ASSESSMENT / PLAN #1 Transient subclinical hyperthyroidism Mrs. Quach's thyroid function tests that we obtained subsequent to our consultation a couple of days ago were entirely normal. The TSH was 2.8; T4 and T3 levels were very comfortably normal at 1.3 and 111 respectively, and a thyrotropin receptor antibody was negative. Thus, there is no evidence of G raves' disease. I relayed these results to Mrs. Quach and she was very pleased, as was I. I suspect this was transient thyroiditis, which has now resolved and most likely will not be a problem in the future. I do recommend retesting TSH and free T4 in about 3 or 4 months. This can be performed by her Primary Care provider just to confirm that her thyroid function remains normal. In some cases of thyroiditis there can be hypothyroidism following the hyperthyroid phase and occasionally that can be long-lasting or permanent. Her disorder was quite mild, however, and the likelihood of permanent thyroid dysfunction is low here. Certainly if there is abnormality of her thyroid function at the followup tests, I would be pleased to visit with her again and discuss the results. This was a telephone visit note, it was 10 minutes total. John Blanco III, M.D. CT CT Job ID: [id number] documented in this encounter Plan of Treatment Not on file documented as of this encounter Visit Diagnoses Diagnosis Thyroiditis Subacute- Primary Hyperthyroidism Subclinical documented in this encounter Care Teams Second Grade Teacher Relationship Specialty Start Date End Date Elsewhere, Pcp PCP - General Family Medicine 06/19/21 documented as of this encounter
--- OUTSIDE RECORDS SUMMARY | 2023-11-28 13:00 | XMS_ITS | Encounter Summary ---
Author Name Unknown Organization [facility] Address [facility] [address] [place] [address] Care Team Providers Care Cutter Head Sharpener Name Role Phone Elsewhere, Pcp Primary Care Provider Unavailabl e Reason for Referral * Outpatient (Routine) - Closed Specialty Diagnoses / Procedures Referred By Benitez navarro Referred To Contact Diagnoses Screening Mammogram Breast Cancer Procedures BI Breast Screening Bilateral with Tomosynthesis Emmy Fontenot, C.N.P. [address] [place] [address] [facility] Region Referral ID Status Reason Start Date Expiration Date Visits Re quested Visits Authorized [id number] Closed 11/21/2022 11/21/2023 1 1 ARY TECH Reason for Visit * Outpatient (Routine) - Closed Specialty Diagnoses / Procedures Referred By Benitez navarro Referred To Contact Diagnoses Screening Mammogram Breast Cancer Procedures BI Breast Screening Bilateral with Tomosynthesis Emmy Fontenot, C.N.P. [address] [place] [address] [facility] Referral ID Status Reason Start Date Expiration Date Visits Re quested Visits Authorized [id number] Closed 11/21/2022 11/21/2023 1 1 Encounter Details Date Type Department Care Team (Late st Contact Info) Description 12/04/2022 12:55 PM DIETARY TECH - 12/04/2022 11:59 PM DIETARY TECH Hospital Encounter Department of Radiology in [address] [address] Emmy Fontenot, C.N.P. [address] [place] [address] Screening Mammogram Breast Cancer Discharge Disposition: Home or Self Care Social [...] Procedure Name Priority Date/Time Associated Diagnosis Comments BI BREAST SCREENING BILATERAL WITH TOMOSYNTHESIS RAD - Routine (most inpatients and all outpatients) 12/04/2022 1:14 PM DIETARY TECH Screening Mammogram Breast Cancer documented in this encounter Results * BI Breast Screening Bilateral with Tomosynthesis (12/04/2022 1:14 PM DIETARY TECH) Anatomical Region Laterality Modality Breast, Breast Imaging RST L OS, Breast Imaging ARZ LOS, Breast Imaging FLA LOS Bilateral Mammography 12/05/2022 11:1 4 AM DIETARY TECH Impressions 12/05/2022 11:16 AM DIETARY TECH Negative. RECOMMENDATION: ??Annual Screening Mammogram ASSESSMENT: ??BI-RADS: 1: Negative. Narrative 12/05/2022 11:16 AM DIETARY TECH EXAM: ??BI BREAST SCREENING BILATERAL WITH TOMOSYNTHESIS Current study was evaluated with a Computer Aided Detection (CAD) system. INDICATION: ??Screening mammogram. COMPARISON: ??Prior exam(s) were available and reviewed for comparison. DENSITY: ??b. There are scattered areas of fibroglandular density. FINDINGS: ??No mammographic findings of malignancy. Procedure Note Boo Varela M.D. - 12/05/2022 EXAM: BI BREAST SCREENING BILATERAL WITH TOMOSYNTHESIS Current study was evaluated with a Computer Aided Detection (CAD) system. INDICATION: Screening mammogram. COMPARISON: Prior exam(s) were available and reviewed for comparison. DENSITY: b. There are scattered areas of fibroglandular density. FINDINGS: No mammographic findings of malignancy. IMPRESSION: Negative. RECOMMENDATION: Annual Screening Mammogram ASSESSMENT: BI-RADS: 1: Negative. Emmy BLOOM BI PROCEDU RES documented in this encounter Visit Diagnoses Diagnosis Screening Mammogram Breast Cancer documented in this encounter Care Teams Cutter Head Sharpener Relationship Specialty Start Date End Date Elsewhere, Pcp PCP - General Family Medicine 06/19/21 documented as of this encounter
--- OUTSIDE RECORDS SUMMARY | 2023-11-28 13:00 | XMS_ITS | Encounter Summary ---
Author Name Unknown Organization [facility] Address [address] [place] [address] Care Team Providers Care Water Resources Business Segment Leader Name Role Phone Elsewhere, Pcp Primary Care Provider Unavailabl e Reason for Referral * Outpatient (Routine) - Closed Specialty Diagnoses / Procedures Referred By Benitez t Referred To Contact Endocrinology Diagnoses Other Specified Abnormal Findings Of Blood Chemistry Goiter Multinodular Nontoxic Emmy Fontenot, C.N.P. [address] [place] [address] [facility] Referral ID Status Reason Start Date Expiration Date Visits Re quested Visits Authorized [id number] Closed 01/15/2023 01/15/2024 1 1 Encounter Details Date Type Department Care Team (Late st Contact Info) Description 01/15/2023 [facility] [address] [place] [address] Emmy Fontenot, C.N.P. [address] [place] [phone] Other Specified Abnormal Findings Of Blood Chemistry (Primary Dx); Goiter Multinodular Nontoxic Social History Tobacco Use [...] as of this encounter Plan of Treatment Scheduled Referrals Name Type Priority Associated Diagnoses Orde r Schedule Endocrinology Referral Outpatient Referral Routine Other Specified Abnormal Findings Of Blood Chemistry Goiter Multinodular Nontoxic Expected: 01/15/2023 (Approximate), Expires: 04/17/2024 documented as of this encounter Visit Diagnoses Diagnosis Other Specified Abnormal Findings Of Blood Chemistry- Primary Goiter Multinodular Nontoxic documented in this encounter Care Teams Water Resources Business Segment Leader Relationship Specialty Start Date End Date Elsewhere, Pcp PCP - General Family Medicine 06/19/21 documented as of this encounter
--- OUTSIDE RECORDS SUMMARY | 2023-11-28 13:00 | XMS_ITS | Encounter Summary ---
Author Name Unknown Organization [place] Address [address] [place] [address] Care Team Providers Care Cone Runner Name Role Phone Brittany Long DO Primary Care Provider [phone] Mildred Long MD Unavailable [phone] Brittany Long DO Unavailable [phone] Brittany Long DO Unavailable [phone] Tomy Brown DPM Unavailable [phone] Brittany Long DO Unavailable [phone] Encounter Details Date Type Department Care Team (Late st Contact Info) Description 12/11/2007 [facility] Medical Advice [facility] [place] [address] [place] [address] Social History Tobacco Use Types Packs/Day Years [...] on filedocumented in this encounter Care Teams Cone Runner Relationship Specialty [place] [address] [place] [address] PCP - General 02/26/07 [place] [address] [place] [address] PCP - Assigned PCP 07/15/11 12/30/18 Mildred Long MD [address] [place] [address] [address] [place] [address] INTERNAL MEDICINE - ENDOCRINOLOGY, DIABETES & METABOLISM 04/06/15 [place] [address] [place] [address] Assigned PCP 07/31/12 05/11/21 Tomy Brown DPM [address] [place] [address] Assigned Musculoskeletal Provider 10/02/20 03/30/22 [place] [address] [place] [address] Assigned PCP 05/12/21 documented as of this encounter
--- OUTSIDE RECORDS SUMMARY | 2023-11-28 13:00 | XMS_ITS | Encounter Summary ---
Author Name Unknown Organization [facility] Address [address] [place] [id number] Care Team Providers Care Solar Sales Associate Name Role Phone Brittany Long DO Primary Care Provider [phone] Mildred Long MD Unavailable [phone] Brittany Long DO Unavailable [phone] Brittany Long DO Unavailable [phone] Tomy Brown DPM Unavailable [phone] Brittany Long DO Unavailable [phone] Encounter Details Date Type Department Care Team (Late st Contact Info) Description 03/24/2008 MyC Medical Advice [facility] [place] [address] [place] [address] Social History Tobacco Use Types Packs/Day Years [...] on filedocumented in this encounter Care Teams Solar Sales Associate Relationship Specialty Start [place] [address] [place] VELOZ [id number] PCP - General 02/26/07 [place] [address] [place] [address] PCP - Assigned PCP 07/15/11 12/30/18 Mildred Long MD [address] [place] [address] [address] [place] [address] INTERNAL MEDICINE - ENDOCRINOLOGY, DIABETES & METABOLISM 04/06/15 [place] [address] [place] [address] Assigned PCP 07/31/12 05/11/21 Tomy Brown DPM [address] [place] [address] Assigned Musculoskeletal Provider 10/02/20 03/30/22 [place] [address] [place]Z [id number] Assigned PCP 05/12/21 documented as of this encounter
--- OUTSIDE RECORDS SUMMARY | 2023-11-28 13:00 | XMS_ITS | Encounter Summary ---
Author Name Unknown Organization [facility] Address [address] [place] [address]. [place] [address] Care Team Providers Care Quality Analyst/Technical Writer Name Role Phone Brittany Long DO Primary Care Provider [phone] Mildred Long MD Unavailable [phone] Brittany Long DO Unavailable [phone] Brittany Long DO Unavailable [phone] Tomy Brown DPM Unavailable [phone] Brittany Long DO Unavailable [phone] Encounter Details Date Type Department Care Team (Late st Contact Info) Description 07/18/2009 MyC Medical Advice Initial Department [facility] Social History Tobacco Use Types Packs/Day Years [...] filedocumented in this encounter Care Teams Quality Analyst/Technical Writer Relationship Specialty [place] [address] [place] [address] PCP - General 02/26/07 [place] [address] [place]EL[place]Z [address] PCP - Assigned PCP 07/15/11 12/30/18 Mildred Long MD [address] [facility] [address] [place] [address] INTERNAL MEDICINE - ENDOCRINOLOGY, DIABETES & METABOLISM 04/06/15 [place] [address] [place]Z [address] Assigned PCP 07/31/12 05/11/21 Tomy Brown DPM [address] [facility] RICARDO ABRAMS [address] Assigned Musculoskeletal Provider 10/02/20 03/30/22 [place] [address] [place] VEL[place]Z [address] Assigned PCP 05/12/21 documented as of this encounter
--- OUTSIDE RECORDS SUMMARY | 2023-11-28 13:00 | XMS_ITS | Encounter Summary ---
Author Name Unknown Organization [facility] Address [facility] [address] [place] [address] Care Team Providers Care Mail Caller Name Role Phone Elsewhere, Pcp Primary Care Provider Unavailabl e Reason for Referral * Outpatient (Routine) - Closed Specialty Diagnoses / Procedures Referred By Benitez navarro Referred To Contact Diagnoses Goiter Multinodular Nontoxic Procedures US Thyroid Emmy Fontenot, C.N.P. [address] [place] [address] [facility] Region Referral ID Status Reason Start Date Expiration Date Visits Re quested Visits Authorized [id number] Closed 01/17/2023 01/17/2024 1 1 Reason for Visit * Outpatient (Routine) - Closed Specialty Diagnoses / Procedures Referred By Benitez navarro Referred To Contact Diagnoses Goiter Multinodular Nontoxic Procedures US Thyroid Emmy Fontenot, C.N.P. [address] [place] [address] [facility] Referral ID Status Reason Start Date Expiration Date Visits Re quested Visits Authorized [id number] Closed 01/17/2023 01/17/2024 1 1 Encounter Details Date Type Department Care Team (Late st Contact Info) Description 01/30/2023 8:00 AM CDT - 01/30/2023 11:59 PM CDT Hospital Encounter Department of Radiology in [address] [id number] Emmy Fontenot, C.N.P. [address] [place] [address] Goiter Multinodular Nontoxic Discharge Disposition: Home or Self Care Social [...] Procedure Name Priority Date/Time Associated Diagnosis Comments US THYROID RAD - Routine (most inpatients and all outpatients) 01/30/2023 8:47 AM CDT Goiter Multinodular Nontoxic documented in this encounter Results * US Thyroid (01/30/2023 8:47 AM CDT) Anatomical Region Laterality Modality Head and Neck, Ultrasound RS T LOS, Ultrasound ARZ LOS, Ultrasound FLA LOS N/A Ultrasound 01/30/2023 12:1 1 PM CDT Impressions 01/30/2023 12:19 PM CDT 1. ??Left upper thyroid 0.6 cm nodule with high suspicion. 2. ??Additional bilateral thyroid nodules with low suspicion. 3. ??Left cervical level 2 and 3 lymph nodes have calcifications. These are indeterminate. Narrative 01/30/2023 12:19 PM CDT EXAM: US THYROID COMPARISON: None. FINDINGS: The right thyroid lobe measures: 2.2 cm x 1.9 cm x 4.9 cm The left thyroid lobe measures: 1.0 cmx1.4 cmx3.8 cm The isthmus measures: 2.8 mm in AP diameter. The thyroid parenchyma appears: Dominant thyroid nodules are described below. Left inferior thyroid has 0.9 cm simple cyst. A nodule in the right mid thyroid measures 1.0 cm and has the following features: * ??composition: mixed cystic/solid (0) * ??echogenicity: hypoechoic (1) * ??shape: not taller than wide (0) * ??margins: smooth margins (0) * ??echogenic foci: nondescript echogenic foci (0). The [place] ultrasound score is 1. Based on the [facility] Thyroid Nodule Care Process Model, the nodule has low suspicion for malignancy (1-5%). A nodule in the left inferior thyroid measures 1.1 cm and has the following features: * ??composition: mixed cystic/solid (0) * ??echogenicity: hypoechoic (1) * ??shape: not taller than wide (0) * ??margins: smooth margins (0) * ??echogenic foci: no echogenic foci (0). The [place] ultrasound score is 1. Based on the [facility] Thyroid Nodule Care Process Model, the nodule has low suspicion for malignancy (1-5%). A nodule in the left upper thyroid measures 0.6 cm and has the following features: * ??composition: solid (1) * ??echogenicity: hypoechoic (1) * ??shape: not taller than wide (0) * ??margins: smooth margins (0) * ??echogenic foci: macrocalcification (1). The [place] ultrasound score is 3. Based on the [facility] Thyroid Nodule Care Process Model, the nodule has low suspicion for malignancy (1-5%). Lymph nodes: Left cervical level 2 lymph node measures 2.1 x 0.9 x 0.8 CMX contains calcifications. Left cervical level 3 lymph node measures 0.6 cm and contains calcification. These brandee calcifications are indeterminate and can relate to old granulomatous infection or be pathologic nodes related to thyroid. No pathologically enlarged lymph nodes are seen in the neck, with evaluation of levels II-V. The thyroid nodule descriptions and categories are based on the Thyroid Nodule Care Process Model established by the [facility] Endocrine Oncology Specialty [place]. [email or web address]/topic/clinical-answers/cnt-71559834/sec-[email or web address] 30616 The [facility] Thyroid Nodule CPM states the following recommendations: ? No suspicion or Extremely low-suspicion nodule: No FNA, no imaging f/u ? Low-suspicion nodule: FNA if greater than or equal to 25 mm; US f/u in 2-5 yrs if greater than or equal to 15 mm ? Intermediate-suspicion nodule: FNA if greater than or equal to 15 mm; US f/u in 1-3 yrs if greater than or equal to 10 mm ? High-suspicion nodule: FNA if greater than or equal to 10 mm (or smaller if desired); US f/u in 1 yr if not FNA Procedure Note Néstor Dickinson M.D. - 01/30/2023 EXAM: US THYROID COMPARISON: None. FINDINGS: The right thyroid lobe measures: 2.2 cm x 1.9 cm x 4.9 cm The left thyroid lobe measures: 1.0 cmx1.4 cmx3.8 cm The isthmus measures: 2.8 mm in AP diameter. The thyroid parenchyma appears: Dominant thyroid nodules are describedbelow. Left inferior thyroid has 0.9 cm simple cyst. A nodule in the right mid thyroid measures 1.0 cm and has the followingfeatures: * composition: mixed cystic/solid (0) * echogenicity: hypoechoic (1) * shape: not taller than wide (0) * margins: smooth margins (0) * echogenic foci: nondescript echogenic foci (0). The [place] ultrasound score is 1. Based on the [facility] Thyroid NoduleCare Process Model, the nodule has low suspicion for malignancy (1-5%). A nodule in the left inferior thyroid measures 1.1 cm and has thefollowing features: * composition: mixed cystic/solid (0) * echogenicity: hypoechoic (1) * shape: not taller than wide (0) * margins: smooth margins (0) * echogenic foci: no echogenic foci (0). The [place] ultrasound score is 1. Based on the [facility] Thyroid NoduleCare Process Model, the nodule has low suspicion for malignancy (1-5%). A nodule in the left upper thyroid measures 0.6 cm and has the followingfeatures: * composition: solid (1) * echogenicity: hypoechoic (1) * shape: not taller than wide (0) * margins: smooth margins (0) * echogenic foci: macrocalcification (1). The [place] ultrasound score is 3. Based on the [facility] Thyroid NoduleCare Process Model, the nodule has low suspicion for malignancy (1-5%). Lymph nodes: Left cervical level 2 lymph node measures 2.1 x 0.9 x 0.8 CMXcontains calcifications. Left cervical level 3 lymph node measures 0.6 cm and containscalcification. These brandee calcifications are indeterminate and can relate to old granulomatousinfection or be pathologic nodes related to thyroid. No pathologically enlarged lymph nodes are seenin the neck, with evaluation of levels II-V. The thyroid nodule descriptions and categories are based on the ThyroidNodule Care Process Model established by the [facility] Endocrine Oncology Specialty [place]. https://[email or web address]/topic/clinical-answers/cnt-92039809/sec-[email or web address] 94406 The [facility] Thyroid Nodule CPM states the followingrecommendations: No suspicion or Extremely low-suspicion nodule: No FNA, no imagingf/u Low-suspicion nodule: FNA if greater than or equal to 25 mm; US f/uin 2-5 yrs if greater than or equal to 15 mm Intermediate-suspicion nodule: FNA if greater than or equal to 15 mm;US f/u in 1-3 yrs if greater than or equal to 10 mm High-suspicion nodule: FNA if greater than or equal to 10 mm (orsmaller if desired); US f/u in 1 yr if not FNA IMPRESSION: 1. Left upper thyroid 0.6 cm nodule with high suspicion. 2. Additional bilateral thyroid nodules with low suspicion. 3. Left cervical level 2 and 3 lymph nodes have calcifications. These areindeterminate. Emmy BLOOM US PROCEDU RES documented in this encounter Visit Diagnoses Diagnosis Goiter Multinodular Nontoxic documented in this encounter Care Teams Mail Caller Relationship Specialty Start Date End Date Elsewhere, Pcp PCP - General Family Medicine 06/19/21 documented as of this encounter
== END 2023-11-28 12:54 | disposition home or self-care (01) ==
PROVIDERS: PCP Nurse Practitioner Family; Visit Provider Nurse Practitioner Family
DX: E78.5 Hyperlipidemia, unspecified (principal); I10 Essential (primary) hypertension; R79.89 Other specified abnormal findings of blood chemistry
CPT/HCPCS: 80053; 80061; 82043; 82570; 84443; 85025

== ENCOUNTER 2024-12-10 13:18 | Outpatient (CLI) | payer MEDICARE, SELFPAY | END 2024-12-10 13:19 | disposition home or self-care (01) | PROVIDERS: PCP Nurse Practitioner Family; Visit Provider Nurse Practitioner Family | DX: R79.89 Other specified abnormal findings of blood chemistry (principal); I10 Essential (primary) hypertension; E78.5 Hyperlipidemia, unspecified; E11.69 Type 2 diabetes mellitus with other specified complication; M19.90 Unspecified osteoarthritis, unspecified site; N18.9 Chronic kidney disease, unspecified; E66.01 Morbid (severe) obesity due to excess calories; Z13.0 Encounter for screening for diseases of the blood and blood-forming organs and certain disorders involving the immune mechanism | CPT/HCPCS: 80053; 80061; 82043; 82570; 82607; 84439; 84443; 85025 ==

== ENCOUNTER 2025-05-19 11:06 | Outpatient (CLI) | payer MEDICARE, SELFPAY ==
--- NOTE | 2025-05-19 11:15 | CRLHL7_ITS ---
For Patients: As a result of the Century Cures Act, medical imaging exams and procedure reports are released immediately into your electronic medical record. You may view this report before your referring provider. If you have questions, please contact your health care provider. PROCEDURE PERFORMED: FLUOROSCOPIC GUIDED right hip Intraarticular injection FINDINGS (DESCRIPTION OF EACH PROCEDURE): Informed consent was obtained prior to the procedure. Fluoroscopic localization of the right hip joint is performed. Skin was prepped and draped in a sterile fashion. 1% Lidocaine was used for local anesthesia. 20-gauge needle was used to enter joint capsule. Entry into the capsule of the right hip joint was confirmed with Omnipaque (1 cubic centimeters instill and confirmed via fluoroscopy). Lidocaine 4 mL along with Depo-Medrol 2 mls (80 mg total) were then injected into the right hip joint. The needle was then removed. The patient tolerated the procedure well with no immediate complications. POST-PROCEDURE DIAGNOSIS: FLUOROSCOPIC GUIDED right hip Intraarticular injection MEDICATIONS GIVEN: . Lidocaine for local anesthesia. SPECIMEN(S): none COMPLICATIONS: no complications noted DRAINS: None ESTIMATED BLOOD LOSS: Less than 10 cc. PHYSICIAN(S) AND ASSISTANTS (if any): BLAKE Henderson Additional Comments: Please call with questions. BLAKE Henderson [place] Protocol A. Pre-procedure verification complete yes1-relevant information / documentation available, reviewed and properly matched to the patient; 2-consent accurate and complete, 3-equipment and supplies available B. Site marking complete YesSite marked if not in continuous attendance with patient C. TIME OUT completed yesTime Out was conducted just prior to starting procedure to verify the eight required elements: 1-patient identity, 2-consent accurate and complete, 3-position, 4-correct side/site marked (if applicable), 5-procedure, 6-relevant images / results properly labeled and displayed (if applicable), 7-antibiotics / irrigation fluids (if applicable), 8-safety precautions. Dictated by Gilson Martinez MD @ 05/19/2025 12:40:35 PM (Electronically Signed)
== END 2025-05-19 11:07 | disposition home or self-care (01) ==
LOC: RAD 11:06
PROVIDERS: PCP Nurse Practitioner Family; Visit Provider Orthopaedic Surgery Sports Medicine
DX: M16.11 Unilateral primary osteoarthritis, right hip (principal)
CPT/HCPCS: 20610; 77002; Q9966

== ENCOUNTER 2025-06-24 13:37 | Outpatient (CLI) | payer MEDICARE, SELFPAY | END 2025-06-24 13:38 | disposition home or self-care (01) | PROVIDERS: PCP Nurse Practitioner Family; Visit Provider Nurse Practitioner Family | DX: Z01.818 Encounter for other preprocedural examination (principal); I10 Essential (primary) hypertension | CPT/HCPCS: 80053; 85025 ==